=== PATIENT | female | born 1950 | race Caucasian/White ===

== ENCOUNTER 2017-04-08 07:19 | Inpatient (IN) ==
[2017-04-08] MEDS ORDERED: NS 1,000 ML IV ONE (07:41)
[2017-04-08] MEDS ORDERED: ONDANSETRON 4 MG/2 ML INJECTION IVP ONE (07:41)
[2017-04-08] MEDS ORDERED: HYDROMORPHONE 2 MG/ML INJECTION IVP ONE ×3 (07:41→11:41)
--- NOTE | 2017-04-08 07:47 | Emergency Department Report ---
General Adult HPI - General Chief complaint: Abdominal Pain Stated complaint: severe abd pain Time Seen by Provider: 04/08/17 07:22 Source: patient Mode of arrival: wheelchair Limitations: no limitations - History of Present Illness HPI narrative: 66-year-old female presents to the emergency department with a chief complaint of generalized lower abdominal discomfort. Patient noted onset of symptoms at the end of last week and had a CT scan on Saturday which showed a hiatal hernia and constipation. She describes the pain as severe. No radiation. she does not note any exacerbating or remitting factors. She also notes 3-4 episodes of nonbloody emesis. Symptoms have been intermittent in nature. No other complaints or associated symptoms. She was at home when her symptoms began. - Related Data Home Medications Medication Instructions Recorded Confirmed BuPROPion SR [Wellbutrin Sr] 150 mg PO DAILY 04/08/17 04/08/17 Citalopram [Celexa] 40 mg PO DAILY 04/08/17 04/08/17 Rizatriptan Benzoate [Maxalt] 10 mg PO PRN PRN 04/08/17 04/08/17 Allergies Allergy/AdvReac Type Severity Reaction Status Date / Time Penicillins Allergy Severe ANAPHYLACTIC Verified 04/08/17 07:30 SHOCK Review of Systems Constitutional: Denies: fever, chills Eyes: Denies: eye pain, vision change ENT: Denies: ear pain, throat pain Cardiovascular: Denies: chest pain, palpitations Respiratory: Denies: cough, dyspnea Gastrointestinal: Reports: abdominal pain, nausea, vomiting, constipation. Denies: diarrhea Genitourinary: Denies: urgency, dysuria Musculoskeletal: Denies: back pain, arthralgia Integumentary: Denies: erythema, rash Neurological: Denies: headache, numbness Psychiatric: Denies: anxiety, depression Endocrine: Denies: fatigue, heat or cold intolerance Hematological/Lymphatic: Denies: easy bleeding, easy bruising Allergic/Immunologic: Denies: facial swelling, urticaria PFSH Patient Stated Medical History Cerebrovascular Accident No Migraine Yes: medication Paralysis No Seizures No Syncope No Angina No Cardiac Arrhythmia No Congestive Heart Failure No Coronary Artery Disease No Heart Murmur No Hypertension No Hypotension No Myocardial Infarction No Rheumatic Fever No Valvular Heart Disease No Other Cardiology No Asthma No Bronchitis No Chronic Obstructive Pulmonary No Disease (COPD) Pneumonia No Pulmonary Edema No Pulmonary Embolism No Sleep Apnea No Tuberculosis No Other Respiratory No Diabetes Mellitus Type 1 No Diabetes Mellitus Type 2 No Cirrhosis No Gastroesophageal Reflux No Disease Gastrointestinal Bleeding No Hepatitis No Hiatal Hernia No Obstructive Bowel No Ulcer No Other GI Yes: Acute Abdomen Hx Urinary Tract Infection Yes Osteoarthritis No Other Musculoskeletal No Anesthesia Reactions No Blood Transfusions No Chemotherapy No Malignant Hyperthermia No Other No Depression No Now No Clinic Medical History (Last Updated 01/22/17 @ 17:05 by THIAGO Faulkner) Depression (Acute Medical) Surgical History: *PARTIAL HYSTERECTOMY. *LEFT KNEE SCOPE Family History: Reviewed and Noncontributory. - Social History Smoking status: Never smoker Substance use type: does not use Alcohol intake frequency: does not drink Physical Exam - Limitations Limitations: no limitations - General General appearance: alert, in no apparent distress - Normal Exams: Head:: Normocephalic without trauma Eyes:: Pupils are PERRLA w/ EOMI, No scleral icterus, irritation, or foreign bodies noted ENMT:: No facial trauma, nasal exudates, pharyngeal erythema, or exudates are noted Dental: No fractured, loose, or missing teeth noted Neck:: Full range of motion, without adenopathy, JVD, bruits or thyromegaly Chest/Respirations:: Clear all [place], with good airflow, and symmetry bilaterally Cardiovascular:: Regular rate and rhythm, without murmur or gallop, Pulses 2+ all extremities, capillary refill, <2 seconds all extremities Abdomen:: Bowel sounds positive, non-distended, no hepatosplenomegaly, masses or bruits noted (soft. generalized lower abdominal tenderness to palpation without rebound or guarding. ) Musculoskeletal:: No tenderness, or deformity noted, good range of motion, all extremities Integumentary:: No rashes, hives, or bruising noted, hair and nails, without abnormality Neurological:: Patient is alert, and oriented, cranial nerves, motor/sensory/ cerebellar, exams w/o gross deficits, to observation Psychiatric:: Patient exhibits, appropriate attention, emotion and affect Course Vital Signs Temperature 98.4 F 04/08/17 07:25 Pulse Rate 71 04/08/17 07:25 Respiratory Rate 20 04/08/17 07:25 Blood Pressure 116/55 04/08/17 07:25 Pulse Oximetry 95 04/08/17 07:25 Temperature 98.0 F 04/08/17 10:19 Pulse Rate 75 04/08/17 10:31 Respiratory Rate 22 04/08/17 10:19 Blood Pressure 118/55 04/08/17 10:19 Pulse Oximetry 92 04/08/17 10:19 Medical Decision Making - MDM Narrative Medical decision making narrative: Labs/imaging were discussed in detail with the patient and family and questions are answered. Patient is given gentle IV hydration. Patient is given parental narcotic and antiemetic medications intravenously with improvement of symptoms. Patient is given Flagyl 500 mg IV [address] in the emergency department. Dr. Rivera has requested to select his own fluoroquinolone to be administered intravenously. Patient is discussed with Dr. Rivera of general surgery and admitted to his service. Patient will be taken to the operating room by Dr. Rivera. Patient and family are in agreement with the current plan of management. Patient is admitted to the hospital in improved condition. No further orders from the accepting physician who is in agreement with the current plan of management. - Differential Diagnosis SBO, metabolic disorder, UTI, colitis, perforation - Lab Data Result diagrams: 04/08/17 07:43 04/08/17 07:43 Lab Results 04/08/17 04/08/17 04/08/17 Range/Units 07:43 07:43 09:47 WBC 10.6 (4.5-11.0) T/MM3 RBC 4.74 (4.00-5.20) M/MM3 Hgb 14.1 (12-16) GM/DL Hct 43.5 (36-46) % MCV 91.8 (80-100) UM3 MCH 29.7 (26-34) UUG MCHC 32.4 (31-37) GM/DL RDW Std Deviation 45.4 (36.9-50.2) FL Plt Count 385 (130-400) T/MM3 MPV 9.3 L (9.4-12.4) UM3 Immature Gran % (Auto) 0.1 (0.0-0.5) % Neut % (Auto) 77.6 H (33-66) % Lymph % (Auto) 16.3 L (23-45) % [place] % (Auto) 4.4 (0-9.0) % Eos % (Auto) 1.4 (0-4) % Baso % (Auto) 0.2 (0-2) % Neut # (Auto) 8.3 H (1.8-7.7) T/MM3 Lymph # (Auto) 1.7 (1-4.8) T/MM3 [place] # (Auto) 0.5 (0-0.8) T/MM3 Eos # (Auto) 0.2 (0-0.5) T/MM3 Baso # (Auto) 0.0 (0-0.2) T/MM3 Abs Immat Gran (auto) 0.01 (0.00-0.03) T/MM3 Turbidity < 20 (0-20) Sodium 142 (134-144) MEQ/L Potassium 3.9 (3.6-5) MEQ/L Chloride 107 (98-107) MEQ/L Carbon Dioxide 27 (22-30) MEQ/L Anion Gap 8 (5-15) MEQ/L BUN 21.0 H (7-17) MG/DL Creatinine 0.7 (0.7-1.2) MG/DL GFR Calculation 83 BUN/Creatinine Ratio 30 H (6-26) RATIO Glucose 136 H (65-110) MG/DL Calculated Osmolality 278 (261-280) MOSM/KG Calcium 9.2 (8.4-10.2) MG/DL Total Bilirubin 0.70 (0.20-1.30) MG/DL Icterus Index < 2 (0-7) AST 20 (14-36) U/L ALT 35 (9-52) U/L Alkaline Phosphatase 88 (38-126) U/L Total Protein 7.0 (6.3-8.2) G/DL Albumin 4.1 (3.5-5.0) G/DL Globulin 2.9 (2.4-3.6) G/DL Albumin/Globulin Ratio 1.4 (1.1-2.2) RATIO Lipase 151 (23-300) U/L Specimen Hemolysis < 15 (0-25) Ur Collection Type Urine, clean catch Urine Color Yellow (YELLOW) Urine Clarity Clear Urine pH 5.5 (5.0-8.0) Ur Specific [place] 1.015 (1.015-1.025) Urine Protein Negative (NEGATIVE) Urine Glucose (UA) Negative (NEGATIVE) Urine Ketones Negative (NEGATIVE) Urine Occult Blood 2+ A (NEGATIVE) Urine Nitrate Negative (NEGATIVE) Urine Bilirubin Negative (NEGATIVE) Urine Urobilinogen 0.2 (NORMAL) EU/DL Ur Leukocyte Esterase Negative (NEGATIVE) Urine RBC 5-10 H (0-3) /HPF Urine WBC 0-1 (0-5) /HPF Ur Squamous Epith Cells 0-5 Urine Bacteria None seen (NEGATIVE) Ur Culture Indicated? Cult not indicated - Radiology Data DT abdomen/pelvis: Moderate amount of pneumoperitoneum without exact source. Otherwise no acute processes. - EKG Data EKG #1 EKG results narrative: Sinus rhythm. 71 bpm. No STEMI. Critical Care Time Critical Care Time: Yes Total Critical Care Time: 47 Attestation: 47 minutes of critical care time was assessed to the patient due to perforated abdominal viscus. Patient required complex medical decision-making, repeated assessment at the bedside, and had potential for decompensation. Critical care time was spent documenting the medical record, treating the patient, making telephone calls on the patient's behalf, and documenting the medical record. Patient was admitted to the ICU in improved condition. Disposition Clinical Impression: abdominal pain, Perforated viscus Disposition: 02 To [facility] Condition: Improved Time of Disposition: 09:30 (Ad[address]. Dr. Rivera.) - Seen By: physician
[2017-04-08] MEDS ORDERED: NS 100 ML ONE (08:29)
[2017-04-08] MEDS ORDERED: IOHEXOL 300mg/ml 75ml INJECTION ONE (08:29)
[2017-04-08] MEDS ORDERED: SALINE FLUSH 10ml SYRINGE ONE ×2 (08:29→11:41)
--- NOTE | 2017-04-08 09:30 | CT Scan Report ---
Indication: Pain, Vomiting PROCEDURE: CT abdomen pelvis w con: Encounter: Initial Comparison: 04/05/2017 Findings: There is a small amount of dependent atelectasis versus subpleural fibrosis. No pleural effusion. Heart size is normal. There is a small hiatal hernia. There are numerous scattered foci of free air in the anterior abdomen upper and lower. The stomach is mildly distended with food and there is mild gastric wall thickening without definite discrete ulceration. There are postsurgical changes prior Enma-en-Y surgery. The gallbladder is thin-walled and nondistended without stones. The liver and spleen enhance homogeneously. Adrenal glands are normal. Kidneys enhance homogeneously and symmetrically. The pancreas is homogeneous in density and uniform in contour. The abdominal aorta is nonaneurysmal. No retroperitoneal or mesenteric adenopathy. Pelvis: There is moderate colonic stool all the way to the rectum without clear evidence for obstruction or free air. The urinary bladder is mildly distended. A normal appendix is identified. Impression: Moderate diffuse pneumoperitoneum with unclear source. This could represent gastric or colonic perforation. Moderate urinary bladder distention. No definite adenopathy or mass lesion. .
[2017-04-08] MEDS ORDERED: MetroNIDAZOLE PB 500 MG/100 ML BAG IV SCH ×2 (09:45→15:43)
[2017-04-08] MEDS ORDERED: LR 1,000 ML IV SCH ×2 (10:15→10:43)
--- NOTE | 2017-04-08 10:30 | General Surg History&Physical ---
- History of Present Illness Chief complaint: sever abd pain HPI: Per Dr. Rivera [facility] Patient Stated Medical History Clinic Medical History (Last Updated 01/22/17 @ 17:05 by THIAGO Faulkner) Depression (Acute Medical) Duodenal ulcers Esophageal stricture Surgical History: VAGINAL HYSTERECTOMY 1984. LEFT KNEE SCOPE. EGD WITH DILATATION 2002 AT [place]. ROU-EN-Y FOR ADHESIVE BAND/STRICURE FROM [facility] AT [place] 2003. Family History: Sister - Breast cancer. Sister - Breast cancer. 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[place]) Current residence: Apartment/Private Home Medications Home Medications Medication Instructions Recorded Confirmed Type BuPROPion SR [Wellbutrin Sr] 150 mg PO DAILY 04/08/17 04/08/17 History Citalopram [Celexa] 40 mg PO DAILY 04/08/17 04/08/17 History Allergies Allergy/AdvReac Type Severity Reaction Status Date / Time Penicillins Allergy Severe ANAPHYLACTIC Verified 04/08/17 07:30 SHOCK Review of Systems 10-point ROS: negative except for HPI and the following: - Psychiatric Psychiatric: Present: depression - Vital Signs Last Vital Signs Temp 98.0 F 04/08/17 10:19 Pulse 71 04/08/17 10:19 Resp 22 04/08/17 10:19 BP 118/55 04/08/17 10:19 Pulse Ox 92 04/08/17 10:19 - Laboratory Result Diagrams: 04/08/17 07:43 04/08/17 07:43 General Surgery Results - Results Labs: 04/08/17 07:43 04/08/17 07:43 Hospital Course Summary Disclaimer: The visit summary below is not to be considered part of the above Progress Note.
[2017-04-08] MEDS ORDERED: CLINDAMYCIN PB 600 MG/50 ML BAG IV SCH (10:43)
[2017-04-08] MEDS ORDERED: LEVOFLOXACIN PB 500 MG/100 ML BAG IV SCH (10:43)
[2017-04-08] MEDS ORDERED: MORPHINE SULFATE 4mg INJECTION IVP PRN ×2 (10:43→15:43)
[2017-04-08] MEDS: NS 1,000 ML IV SCH ×2 (10:53→14:40)
--- NOTE | 2017-04-08 10:59 | Anesthesia Preoperative Report ---
Anesthesia Preoperative Record - Date and Time Date: 04/08/17 Preoperative Diagnosis: severe abd pain Proposed Procedure: Exp Lap NPO Since Date: 04/07/17 NPO Since Time: 17:00 Allergies/Adverse Reactions: Allergies Allergy/AdvReac Type Severity Reaction Status Date / Time Penicillins Allergy Severe ANAPHYLACTIC Verified 04/08/17 07:30 SHOCK - Vital Signs Vital Signs: Temperature 98.0 F 04/08/17 10:19 Pulse Rate 75 04/08/17 10:31 Respiratory Rate 22 04/08/17 10:19 Blood Pressure 118/55 04/08/17 10:19 Pulse Oximetry 92 04/08/17 10:19 Height and Weight: Height 5 ft 5 in Weight 57.6 kg - Medications Inpatient Medications: Current Medications Metronidazole/Sodium Chloride (Flagyl Iv Premix) 500 mg in 100 mls @ 100 mls/ hr IV O LAURI Last Admin: 04/08/17 10:25 Dose: 100 mls/hr Clindamycin Phosphate (Cleocin Premix) 600 mg in 50 mls @ 100 mls/hr IV Q8H LAURI Levofloxacin/Dextrose (Levaquin Premix) 500 mg in 100 mls @ 100 mls/hr IV Q24H LAURI Lactated Ringer's (Lactated Ringers) 1,000 mls @ 100 mls/hr IV .Q10H LAURI Sodium Chloride (Normal Saline) 1,000 mls @ 50 mls/hr IV .Q20H LAURI Last Admin: 04/08/17 10:53 Dose: 50 mls/hr Morphine Sulfate (Morphine Sulfate Inj) 2 - 4 mg IVP Q2H PRN PRN Reason: Pain Sodium Chloride (Iv Flush) 10 - 80 ml IVF PRN PRN PRN Reason: Flushing Home Medications: Home Medications Medication Instructions Recorded Confirmed Type BuPROPion SR [Wellbutrin Sr] 150 mg PO DAILY 04/08/17 04/08/17 History Citalopram [Celexa] 40 mg PO DAILY 04/08/17 04/08/17 History Is Patient on Beta Antoinette?: No - Medical History Respiratory: DENIES: Asthma, Bronchitis, Chronic Obstructive Pulmonary Disease (COPD), Dyspnea, Orthopnea, Pulmonary Embolism, Pneumonia, Upper Respiratory Infection, Pulmonary Edema, Sleep Apnea, Tuberculosis, Other Cardiovascular: DENIES: Abnormal EKG, Angina, Arrhythmia, Congestive Heart Failure, Coronary Artery Disease, Heart Murmur, Hypertension, Hypotension, High Cholesterol, Myocardial Infarction, Rheumatic Fever, Valvular Heart Disease, Other Gastrointestional: Reports: Other (Acute Abdomen) DENIES: Obstructive Bowel, Hepatitis, Cirrhosis, Nausea or Vomiting Present, Gastroesophageal Reflux Disease, Gastrointestinal Bleeding, Hiatal Hernia, Ulcer , Morbid Obesity Neuro/Musculoskeletal: Denies: HX.MS.OSAR, Back Problems, Cerebrovascular Accident, Depression, Headaches, Loss of Consciousness, Muscle Weakness, Neuromuscular Disorder, Paralysis, Paresthesia, Syncope, Seizures, Other Renal/Endocrine: DENIES: Diabetes Mellitus Type 1, Diabetes Mellitus Type 2, Renal Failure, Dialysis, Thyroid Disease, Weight Loss, Weight Gain, Other Other History: DENIES: Anesthesia Reactions, Now, Blood Transfusions, Chemotherapy , Cancer, Hemophilia, Malignant Hyperthermia, Sickle Cell Disease, Other - Surgical History GI Surgery/Treatments: Reports: Other (removed scarring around duodenum) Musculoskeletal Surgery/Tx: Reports: Knee Arthroscopy (left) Reproductive Surgery/Treatment: Reports: Hysterectomy Anesthesia Reactions: None Hx Family Anesthesia Reaction: No History of Motion Sickness: No - Social History Smoking Status: Never smoker Hx Chewing Tobacco Use: No Second Hand Exposure: No Substance Use Type: does not use Alcohol Intake Frequency: does not drink - Pertinent Findings Laboratory: CBC and BMP 04/08/17 07:43 04/08/17 07:43 BMP 04/08/17 07:43 Sodium 142 Potassium 3.9 Chloride 107 Carbon Dioxide 27 BUN 21.0 H Creatinine 0.7 Glucose 136 H Calcium 9.2 Liver Function 04/08/17 Range/Units 07:43 Total Bilirubin 0.70 (0.20-1.30) MG/DL AST 20 (14-36) U/L ALT 35 (9-52) U/L Alkaline Phosphatase 88 (38-126) U/L Albumin 4.1 (3.5-5.0) G/DL Urine 04/08/17 Range/Units 09:47 Urine Color Yellow (YELLOW) Urine Clarity Clear Urine pH 5.5 (5.0-8.0) Ur Specific [place] 1.015 (1.015-1.025) Urine Protein Negative (NEGATIVE) Urine Glucose (UA) Negative (NEGATIVE) EKG: Sinus Rhythm - Physical Exam Respiratory Exam: Present: lungs clear, bilateral breath sounds equal Cardiovascular Exam: Present: regular rate and rhythm, no murmur - Airway Assessment Mallampati Score: I TMD: 3 Fingerbreadths Overall Assessment: no airway concerns - ASA ASA Score: 2, E - Plan Anesthesia: General Inhalation Gases - Discussion Discussion: Discussed risks/options/alternatives of anesthesia and questions answered. Patient consents. Nursing pain assessment noted. Present for Discussion: family member Attestation Statement: Prior to the delivery of any anesthetic medication, I examined the patient, developed the plan, obtained the patient's consent and discussed the risk and benefits of the procedure with the patient/guardian. - Additional Information Seen by Anesthesia: Yes
[2017-04-08] MEDS ORDERED: PROPOFOL 20 ML ONE (11:40)
[2017-04-08] MEDS ORDERED: ROCURONIUM 50 MG/5 ML INJECTION IVP ONE ×2 (11:40→13:50)
[2017-04-08] MEDS ORDERED: SUFentanil 50mcg/ml INJECTION ONE (11:41)
--- NOTE | 2017-04-08 12:58 | History and Physical ---
FINDINGS Mrs. iBshop is a 66-year-old female whom I was asked to see this morning through the emergency room as a result of her history and physical findings of severe abdominal pain in conjunction with an abnormal CT scan revealing evidence of pneumoperitoneum. Mrs. Bishop this morning was in a considerable amount of discomfort during the interview process and therefore a good portion of the history was obtained from her daughter who was present. Apparently last week the patient was complaining of a component of loose stools and vomiting. The patient states that she did see her primary care physician and was informed that she had a "bladder infection". The patient was placed on antibiotics but this did not result in much improvement. The patient's daughter states that they represented to her primary care physician's office on Saturday and had underwent a CT scan of her abdomen and pelvis. Apparently the CT scan at that time did not reveal any marked abnormalities and the patient was continued to be managed on an outpatient basis over the course of the weekend. Unfortunately over the weekend the patient continued to have ongoing abdominal pain and discomfort. This pain became more severe this morning. As a result of this increasing severe abdominal pain, the patient presented to our emergency room facility where a repeat CT scan was obtained. Unfortunately on CT scan there was evidence for pneumoperitoneum. I was subsequent notified for further evaluation of the patient. The patient was subsequently transferred over to the preop area as a result of the above circumstances. Upon my entering into the preop exam room, the patient was holding her abdomen and was complaining of severe abdominal pain. PAST MEDICAL HISTORY Performed by my nurse practitionerNeri. PAST SURGICAL HISTORY Performed by my nurse practitionerNeri. MEDICATIONS Performed by my nurse practitionerNeri. ALLERGIES Performed by my nurse practitionerNeri. SOCIAL HISTORY Performed by my nurse practitionerNeri. FAMILY HISTORY Performed by my nurse practitionerNeri. REVIEW OF SYSTEMS Performed by my nurse practitionerNeri. I have also obtained this information and reviewed the data collected. PHYSICAL EXAMINATION GENERAL: Mrs. Bishop is a 66-year-old female who does appear to be in acute distress. VITALS: Temperature 98.0, pulse 75, respirations 22, blood pressure 118/55, SaO2 92% on 3 liters per nasal cannula. HEENT: Normocephalic. Pupils are equally round and react to light and accommodation. NECK: Supple without lymphadenopathy. CHEST: Clear to auscultation bilaterally. HEART: Regular rate and rhythm. Normal S1, S2, without gallops, murmurs or clicks. ABDOMEN: Palpation of the abdomen reveals diffuse peritonitis throughout. Any palpation of the anterior abdominal wall elicits severe pain to the patient. She does have a component of both voluntary and involuntary guarding. I do not appreciate any evidence for hepatomegaly or other abnormal masses. EXTREMITIES: Without clubbing, cyanosis, or edema. NEURO: Cranial nerves II-XII grossly intact. Patient without focal, motor, or sensory deficits. LABORATORY/RADIOGRAPHIC EVALUATION The patient had a CBC and her white count was 10.6. Hemoglobin was normal at 14.1. CMP was obtained and found to be essentially within normal limits. Lipase was normal at 151. UA was obtained and she was found to have a few RBCs , otherwise UA was negative. I have reviewed her CT scan of her abdomen and pelvis personally as well as the dictated report. The patient does have a considerable amount of stool throughout the entire colon. The urinary bladder was distended in nature. One can see free air throughout the anterior abdominal wall. Additionally upon reviewing the CT scan there does appear to be more "droplets of air" along the left lateral abdominal wall. No distinct site of mesenteric fat stranding is present, however, to identify the potential source of her perforation. ASSESSMENT 66-year-old female with acute surgical abdomen/pneumoperitoneum. PLAN Exploratory laparotomy. I informed the patient and her daughter who was present that the patient did indeed have a life-threatening condition and I would recommend proceeding with an emergent surgical intervention. It was my recommendation that we initiate broad-spectrum antibiotics, provide fluid bolus , and then proceed with exploratory laparotomy. Potential risks of the procedure which include, but not exclusive of, bleeding and/or infection was discussed with the patient's daughter. The patient and family understood and wished to proceed as stated above. GARCIA
[2017-04-08] MEDS ORDERED: LIDOCAINE VISCOUS 2% ORAL LIQUID 15ml ONE (13:00)
[2017-04-08] MEDS ORDERED: EPHEDRINE 50mg/ml INJECTION ONE (13:34)
[2017-04-08] MEDS ORDERED: SUGAMMADEX 200mg/2ml INJECTION IVP ONE (15:06)
--- NOTE | 2017-04-08 15:34 | General Surgery Procedure Note ---
Date of Procedure: 04/08/17 Surgeon: Nicole Power Plant Supervisor: Neri Woodward APRN Postoperative Diagnosis: Subsequent stercoral perforation Procedure: Exploratory laparotomy with sigmoid resection, takedown splenic flexure, and creation of end colostomy Estimated Blood Loss: See Anesthesia Record.
[2017-04-08] MEDS ORDERED: HYDROMORPHONE PCA 30mg/30ml VIAL IV PRN (15:43)
[2017-04-08] MEDS: ONDANSETRON 4 MG/2 ML INJECTION IVP PRN (15:45)
[2017-04-08] MEDS ORDERED: DiphenhydrAMINE 50 MG/ML INJECTION IVP ONE (16:08)
[2017-04-08] MEDS: D5-1/2NS with KCL 20mEq 1,000 ML IV SCH (18:09)
[2017-04-08] MEDS ORDERED: ALBUTEROL 2.5mg/3ml (0.083%) NEB AEROSOL PRN (18:11)
[2017-04-08] MEDS: MetroNIDAZOLE PB 500 MG/100 ML BAG IV SCH (18:13)
[2017-04-08] MEDS: KETOROLAC 15 MG/ML INJECTION IVP PRN (19:00)
--- NOTE | 2017-04-08 19:11 | Anesthesia Postoperative Note ---
- Date and Time Date: 04/08/17 Time: 19:10 - Status Patient Participated in Evaluation: Patient Participated in Person Vital Signs: Temperature 91.1 F L 04/08/17 17:56 Pulse Rate 74 04/08/17 18:00 Respiratory Rate 18 04/08/17 18:00 Blood Pressure 168/81 H 04/08/17 18:00 Pulse Oximetry 96 04/08/17 18:00 Respiratory Function: Airway Patent Cardiovascular Function: Regular Pulse EKG: Sinus Rhythm Mental Status: Alert and Oriented Pain Intensity: 4 Hydration: IV Infusing, Nausea, Vomiting Complications During Recover: None Apparent - Follow-Up Instructions Instructions: Per Surgeon
[2017-04-08] MEDS: PROCHLORPERAZINE 10 MG/2 ML INJECTION IVP PRN (19:15)
[2017-04-08] MEDS: CLINDAMYCIN PB 600 MG/50 ML BAG IV SCH (21:05)
[2017-04-09] MEDS: ONDANSETRON 4 MG/2 ML INJECTION IVP PRN ×3 (00:28→14:19)
[2017-04-09] MEDS: MetroNIDAZOLE PB 500 MG/100 ML BAG IV SCH ×3 (01:50→17:22)
[2017-04-09] MEDS: PROCHLORPERAZINE 10 MG/2 ML INJECTION IVP PRN (04:25)
[2017-04-09] MEDS: CLINDAMYCIN PB 600 MG/50 ML BAG IV SCH ×3 (04:34→20:53)
[2017-04-09] MEDS: D5-1/2NS with KCL 20mEq 1,000 ML IV SCH (05:26)
[2017-04-09] MEDS ORDERED: GENTAMICIN - PHARMACY CONSULT MC ONE (07:25)
--- NOTE | 2017-04-09 07:46 | Pharmacy Consult-Antibiotics ---
Pharmacy Consult-Gentamicin - Laboratory Information Gentamicin WBC 7.1 T/MM3 (4.5-11.0) 04/09/17 04:10 BUN 15.0 MG/DL (7-17) 04/09/17 04:10 Creatinine 0.6 MG/DL (0.7-1.2) L 04/09/17 04:10 - Consult Information Gentamicin therapy started on Ms Bishop, who is 66 years old and has a perforated viscus. Her antiobiotics currently are clindamycin and metronidazole (the gentamicin will replace the levofloxacin). She has good renal function. Will begin gentamicin 120mg IVPB q12h. Will continue to monitor and adjust doses accordingly. Thank you.
[2017-04-09] MEDS: SALINE FLUSH 10ml SYRINGE IVF PRN (07:48)
[2017-04-09] MEDS: KETOROLAC 15 MG/ML INJECTION IVP PRN ×3 (08:21→20:52)
[2017-04-09] MEDS: GENTAMICIN 120 MG in NS 100 ML IV SCH ×2 (08:21→20:00)
[2017-04-09] MEDS: POTASSIUM CHLORIDE INJ 10 MEQ in NS 1,000 ML IV SCH ×2 (08:22→17:21)
--- NOTE | 2017-04-09 09:05 | Operative Note ---
DATE OF SERVICE 04/08/2017 SURGEON Jayson Rivera MD MEDICAL ASSISTANT Neri Woodward APRN PREOPERATIVE DIAGNOSIS Acute surgical abdomen, abnormal CT scan revealing pneumoperitoneum. POSTOPERATIVE DIAGNOSIS Acute surgical abdomen, abnormal CT scan revealing pneumoperitoneum secondary to sigmoid stercoral perforation. PROCEDURE Exploratory laparotomy, sigmoid resection, creation of Maria Elena's pouch and end colostomy, mobilization of splenic flexure. ANESTHESIA General endotracheal. EBL AND FLUIDS Please see chart. BRIEF HISTORY/INDICATIONS Mrs. Bishop is a 66-year-old female whom I was asked to see earlier today through the emergency room as a result of her history and physical findings of severe abdominal pain in conjunction with an abnormal CT scan revealing evidence for pneumoperitoneum. Upon abdominal examination the patient was found to have peritonitis. As a result of the above indications, it was recommended to the patient that she undergo surgical intervention. For completeness, please refer to notes in the patient's chart. FINDINGS Upon laparotomy one could see her prior Enma-en-Y gastrojejunostomy. The liver edge was smooth without nodularities. Gallbladder was distended but without palpable stones. Small bowel was run from the ligament of Treitz to the terminal ileum. No visible or palpable abnormalities were noted. Palpation of the colon revealed a significant amount of stool burden throughout the entire colon. Within the sigmoid colon the patient was found to have a perforation as the result of marked severe obstipation/constipation. One could see a perforation of the midsigmoid colon. There was a fair amount of purulence and purulent material within the perisigmoid colon at this location. There was a fair amount of johnnie pus within the pouch of Pablo. Anaerobic and aerobic cultures were obtained from the pouch of Pablo. A standard sigmoid resection with creation of an end colostomy and Maria Elena's pouch and mobilization of the splenic flexure was performed without incident. PROCEDURE After informed consent was obtained, the patient was brought to the operating suite, placed on the table in supine fashion. The abdomen was then prepped and draped in sterile fashion. Formal time-out was then completed. A standard midline incision was then made from within the epigastric region down to the suprapubic region. Underlying subcutaneous tissues, fascia and peritoneum was then opened to the extent of the incision. Abdominal cavity was explored with findings as noted above. Once the perforation of the sigmoid colon had been identified, the white line of Toldt was incised and the sigmoid colon and descending colon was reflected medially. Sigmoid colon was found to be fairly redundant in nature. A point involving the mid descending colon about 10-15 cm proximal to the perforation was identified. A small opening was created within the mesentery at this location adjacent to the colon. A JEISON 75 stapler was then placed across the colon and fired at this location. Next, the mesentery was then sequentially divided between right angle clamps involving the sigmoid colon down to the rectosigmoid junction. Dissection was carried out fairly close to the colon so as to avoid injury to the ureter. Once the mesentery had been divided down to the rectosigmoid junction a contour stapler was placed across the rectum and fired. The sigmoid colon was then passed off table as a surgical specimen. Two sffart-uj-geril sutures of 2-0 Prolene were then placed along the edges of the Maria Elena's pouch to facilitate identification of the Maria Elena's pouch if the patient was to undergo takedown of her colostomy in the future. Secondary to the marked contamination within the peritoneal cavity and the significant amount of stool burden within the colon, I elected not to perform a primary anastomosis. To provide better mobilization of the remaining descending colon, I elected to go ahead and mobilize the splenic flexure. White line of Toldt was continued to be incised up to the splenic flexure. Gastrocolic ligament and omentum between the stomach and colon was then sequentially divided between right angle clamps and ligated with 0 Vicryl ties. Splenorenal ligament was then divided under direct visualization. This resulted in complete mobilization of the splenic flexure. Next, I elected to go ahead and attempt to express the considerable amount of stool burden within her remaining colon out through the proximal staple line. Colon was able to be brought forth up through the midline incision and the end of the staple line was transected with curved Barrow scissors. A fair amount of time was spent advancing the stool burden from the transverse colon and remaining descending colon out through the transected end of the colon. The colon was irrigated during this process utilizing Asepto with Betadine solution. Perhaps 3-4 feet of stool was able to be expressed in this fashion. Next JEISON 75 stapler was then placed once again across the open end of the remaining descending colon and fired. The end of the colon was then irrigated copiously with Betadine solution. Colon was returned back into the abdominal cavity. Attention was then directed towards creation of the colostomy. [facility] clamps were placed upon the fascia to the left of the incision and retracted medially. A point somewhat lateral and caudad to the umbilicus was then obtained. An [facility] clamp was placed at the proposed colostomy site and retracted anteriorly. A 15- blade was then utilized and a small circular incision was then made between the [facility] clamp. Dissection was carried down to the underlying anterior rectus sheath. A cruciate incision was then made overlying the anterior rectus sheath. One could then see the linear fibers of the rectus muscle. A hemostat was introduced through the midportion of the rectus muscle and gently spread and advanced through the posterior rectus sheath. This opening was then enlarged so that two to three fingers could be placed within the newly created colostomy site. A Prosper clamp was then placed through the newly created colostomy site and used to grasp the end of the staple line upon the remaining descending colon. This portion of the colon was then brought forth out through the incision. New gowns, gloves and instruments were then obtained. Attention was then directed towards the fascial closure. Instrument, sponge and needle counts were performed and found to be correct. Fascia was then closed in a running fashion with #1 PDS. Skin was then closed with ismael. Attention was then focused towards creation of the colostomy. The very tip of the colon that had been brought forth out through the abdominal wall did appear somewhat dusky. I therefore transected an additional 3-4 cm of the colon across viable appearing colon. This was done utilizing curved Barrow scissors. The transected end of the colon did bleed briskly indicative of adequate blood supply. Attention was then directed towards creation of the colostomy. Four quadrant sutures were placed in the following fashion: first a full purchase of the transected end of the colon was obtained followed by a seromuscular purchase of the colon about 3-4 cm proximal to the transected end of the colon followed by subcuticular purchase of the adjacent skin. Each quadrant suture was then tied securely resulting in the creation of a nicely everted colostomy. Each quadrant suture was then bisected by placing an additional single interrupted suture of 3-0 Vicryl. The colostomy appliance was then applied. Sterile dressing was then applied. The patient will be sent back to the ICU once she is deemed in stable condition. Additionally, it should be noted that Neri Woodward APRN, was present throughout the entire case and played a pivotal role in providing assistance and exposure during the course of the procedure. GARCIA
[2017-04-09] MEDS: ENOXAPARIN 40 MG/0.4 ML INJECTION SQ SCH (09:08)
[2017-04-09] MEDS: PANTOPRAZOLE 40 MG INJECTION IVP SCH (09:08)
[2017-04-09] MEDS: CITALOPRAM 40 MG TABLET PO SCH (09:09)
[2017-04-09] MEDS: BuPROPion SR 150mg (12HR) TABLET PO SCH (09:09)
[2017-04-09] MEDS: SENNA + DOCUSATE TABLET PO SCH (09:09)
[2017-04-09] MEDS ORDERED: [UNRECOGNIZED DRUG - OTHER] PO PRN (11:40)
--- NOTE | 2017-04-09 16:47 | Progress Note ---
DATE 04/09/2017 FINDINGS Ms. Bishop this morning appeared significantly better in comparison to last evening. She states that her nausea and pain are markedly improved. VITALS: Afebrile. Normotensive. Please refer to EMR. CHEST: Clear to auscultation bilaterally. HEART: Regular rate and rhythm. Normal S1 and S2 without gallops, murmurs or clicks. ABDOMEN: Abdomen is soft. Incisional tenderness is present. Colostomy is present within left lower quadrant and pink and somewhat "edematous" in nature. LABORATORY/RADIOGRAPH EVALUATION The patient's CBC today revealed a white count of 7.1. Hemoglobin is overall stable at 12.1. Did have left shift with 27% bands. BMP obtained and found to be essentially within normal limits. ASSESSMENT 66-year-old female status post exploratory laparotomy secondary to stercoral perforation of sigmoid colon. Status post sigmoid resection, Maria Elena's pouch and creation of end colostomy. Patient doing well this morning. PLAN Will continue with current the care at this time. Will go ahead and begin the patient on some clear liquids. Will continue with ongoing broad-spectrum antibiotics. MTDD
[2017-04-10] MEDS: ONDANSETRON 4 MG/2 ML INJECTION IVP PRN ×3 (01:52→23:03)
[2017-04-10] MEDS: SALINE FLUSH 10ml SYRINGE IVF PRN ×3 (01:52→23:03)
[2017-04-10] MEDS: MetroNIDAZOLE PB 500 MG/100 ML BAG IV SCH ×3 (02:01→20:39)
[2017-04-10] MEDS: POTASSIUM CHLORIDE INJ 10 MEQ in NS 1,000 ML IV SCH ×3 (02:01→13:06)
[2017-04-10] MEDS: KETOROLAC 15 MG/ML INJECTION IVP PRN ×3 (04:18→23:01)
[2017-04-10] MEDS: CLINDAMYCIN PB 600 MG/50 ML BAG IV SCH ×3 (05:35→23:47)
[2017-04-10] MEDS: GENTAMICIN 120 MG in NS 100 ML IV SCH ×2 (09:20→21:57)
[2017-04-10] MEDS: ENOXAPARIN 40 MG/0.4 ML INJECTION SQ SCH (09:22)
[2017-04-10] MEDS: CITALOPRAM 40 MG TABLET PO SCH (09:22)
[2017-04-10] MEDS: BuPROPion SR 150mg (12HR) TABLET PO SCH (09:22)
[2017-04-10] MEDS: SENNA + DOCUSATE TABLET PO SCH (09:22)
[2017-04-10] MEDS: PANTOPRAZOLE 40 MG INJECTION IVP SCH (09:25)
[2017-04-10] MEDS ORDERED: NS 1,000 ML IV SCH (13:30)
[2017-04-10] MEDS ORDERED: RIZATRIPTAN 5 MG TABLET PO PRN (15:00)
[2017-04-10] MEDS: HYDROCODONE/APAP 5mg/325mg TABLET PO PRN (17:41)
--- NOTE | 2017-04-10 18:52 | General Surgery Progress Note ---
Subjective Patient reports: feels better, pain is less (states the Toradol has been very helpful), tolerating liquids well (fulls), voiding w/o difficulty, no bowel movement (in colostomy yet), afebrile - Vital Signs Last Vital Signs Temp 98.6 F 04/10/17 13:00 Pulse 94 04/10/17 13:00 Resp 20 04/10/17 15:00 BP 151/67 H 04/10/17 13:00 Pulse Ox 95 04/10/17 13:00 - Laboratory Result Diagrams: 04/10/17 04:26 04/10/17 04:26 - Abnormal Exam Respiratory: other (crackles bilateral) Abdominal: hypoactive bowel sounds - Normal Exam General: awake, alert Cardiovascular: regular rhythm, regular rate Abdominal: incision(s) (dressing in tace), other (colostomy is moist and pink) Psychiatric: normal affect Neurological: CN 2-12 grossly intact Assessment and Plan (1) Colostomy care Current Visit: Yes Status: Acute (2) Stercoral ulcer of large intestine Current Visit: Yes Status: Acute Plan: She is doing very well for PO #2 Eating full liquids without nausea. Voiding without difficulty. Ambulating without difficulty. Will transfer to surgical floor. Continue current care. Hospital Course Summary Disclaimer: The visit summary below is not to be considered part of the above Progress Note. Hospital Course: 04/09 POD #1 66-year-old female status post exploratory laparotomy secondary to stercoral perforation of sigmoid colon. Status post sigmoid resection, Maria Elena's pouch and creation of end colostomy. Patient doing well this morning. PLAN Will continue with current the care at this time. Will go ahead and begin the patient on some clear liquids. Will continue with ongoing broad-spectrum antibiotics. 04/10/17 18:59 She is doing very well for PO #2 Eating full liquids without nausea. Voiding without difficulty. Ambulating without difficulty. Will transfer to surgical floor. Continue current care 04/10/17 19:00
[2017-04-11] MEDS: MetroNIDAZOLE PB 500 MG/100 ML BAG IV SCH ×3 (04:35→18:15)
[2017-04-11] MEDS: ONDANSETRON 4 MG/2 ML INJECTION IVP PRN ×2 (06:29→12:11)
[2017-04-11] MEDS: CLINDAMYCIN PB 600 MG/50 ML BAG IV SCH ×3 (06:34→21:25)
[2017-04-11] MEDS: POTASSIUM CHLORIDE INJ 10 MEQ in NS 1,000 ML IV SCH (07:41)
[2017-04-11] MEDS ORDERED: NS with KCL 20 mEq 1,000 ML IV SCH (07:45)
[2017-04-11] MEDS: KETOROLAC 15 MG/ML INJECTION IVP PRN ×2 (08:00→18:16)
[2017-04-11] MEDS: HYDROCODONE/APAP 5mg/325mg TABLET PO PRN ×2 (09:01→17:05)
[2017-04-11] MEDS ORDERED: Bisacodyl EC TAB 5 MG TABLET PO ONE ×2 (09:02→18:04)
--- NOTE | 2017-04-11 09:15 | Progress Note ---
DATE 04/10/2017 FINDINGS Mrs. Bishop was seen this evening on rounds. She states that she is feeling significantly better. She denies any element nausea. VITALS: Afebrile. Normotensive. Please refer to EMR. CHEST: Clear to auscultation bilaterally. HEART: Regular rate and rhythm. Normal S1 and S2 without gallops, murmurs or clicks. ABDOMEN: Palpation of the abdomen reveals it to be soft with only minimal incisional tenderness being present this evening. Colostomy is pink and viable. One can see a small amount of air within the colostomy appliance. ASSESSMENT 66-year-old female with stercoral perforation. Status post exploratory laparotomy, sigmoid resection, creation of end colostomy and Maria Elena's pouch. Patient doing well. PLAN Will go ahead and advance diet to full liquids. Will likely transfer out to surgical floor tomorrow. I am pleased with the patient's progress. [facility]
[2017-04-11] MEDS: PANTOPRAZOLE 40 MG INJECTION IVP SCH (09:33)
[2017-04-11] MEDS: ENOXAPARIN 40 MG/0.4 ML INJECTION SQ SCH (09:33)
[2017-04-11] MEDS: CITALOPRAM 40 MG TABLET PO SCH (09:33)
[2017-04-11] MEDS: BuPROPion SR 150mg (12HR) TABLET PO SCH (09:33)
[2017-04-11] MEDS: SENNA + DOCUSATE TABLET PO SCH (09:33)
[2017-04-11] MEDS: GENTAMICIN 120 MG in NS 100 ML IV SCH (09:34)
--- NOTE | 2017-04-11 11:13 | Pharmacy Consult-Antibiotics ---
Pharmacy Consult-Gentamicin - Laboratory Information Gentamicin Gentamicin Trough 1.6 UG/ML (0-2) 04/11/17 07:22 WBC 8.7 T/MM3 (4.5-11.0) 04/11/17 07:22 BUN 6.0 MG/DL (7-17) L 04/11/17 07:22 Creatinine 0.6 MG/DL (0.7-1.2) L 04/11/17 07:22 - Consult Information Gentamicin trough close to high range so will change gentamicin to 160mg IV q18h. Will continue to monitor and adjust accordingly. Thank you.
[2017-04-11] MEDS: NS IV SCH (15:19)
[2017-04-11] MEDS: MICAFUNGIN IV SCH (15:19)
--- NOTE | 2017-04-11 15:37 | Progress Note ---
DATE: 04/11/17 FINDINGS Ms. Bishop today is without complaints. She is having a slight component of nausea. Denies significant abdominal pain. VITALS: Afebrile. Normotensive. Current vitals include temperature 97.5, pulse 81, respirations 16, blood pressure 151/74, SAO2 93% on room air. HEENT: Normocephalic. Pupils are equally round and react to light and accommodation. CHEST: Clear to auscultation bilaterally. HEART: Regular rate and rhythm. Normal S1 and S2 without gallops, murmurs or clicks. ABDOMEN: Dressing was removed and her incision at this time is clean, dry, and intact. Palpation of the abdomen revealed it to be soft with only minimal incisional tenderness being present. Colostomy is present within the left lower quadrant. Colostomy is somewhat edematous but remains pink and viable. LABORATORY/RADIOGRAPHIC EVALUATION The patient's cultures are coming back from the peritoneum. I do see that she has Alesha species present that is not albicans. Her cultures are polymicrobial in nature. White count stable at 8.7. Hemoglobin stable at 10.0. ASSESSMENT 66-year-old female with stercoral perforation of sigmoid colon. Status post sigmoidectomy, creation of Maria Elena's pouch, end colostomy, mobilization of splenic flexure. Patient doing well. PLAN Will add antifungal to antibiotic regimen. Will go ahead and consult Infectious Disease for antibiotic recommendations. Will continue on full liquid diet at this time. Overall pleased with the patient's progress. [facility]
[2017-04-11] MEDS: PROCHLORPERAZINE 10 MG/2 ML INJECTION IVP PRN (17:05)
[2017-04-11] MEDS: SALINE FLUSH 10ml SYRINGE IVF PRN ×2 (17:05→21:26)
[2017-04-11] MEDS ORDERED: MAG-AL + SIM ORAL LIQUID 30ml PO PRN (18:03)
[2017-04-11] MEDS ORDERED: NS FLUSH BAG 500ml IV PRN (21:20)
[2017-04-12] MEDS ORDERED: GENTAMICIN 160 MG in NS 100 ML IV SCH
[2017-04-12] MEDS: KETOROLAC 15 MG/ML INJECTION IVP PRN ×4 (00:17→19:22)
[2017-04-12] MEDS: SALINE FLUSH 10ml SYRINGE IVF PRN ×9 (00:18→21:11)
[2017-04-12] MEDS: MetroNIDAZOLE PB 500 MG/100 ML BAG IV SCH ×2 (02:15→10:39)
[2017-04-12] MEDS: CLINDAMYCIN PB 600 MG/50 ML BAG IV SCH (04:23)
[2017-04-12] MEDS: ONDANSETRON 4 MG/2 ML INJECTION IVP PRN ×2 (06:40→13:00)
[2017-04-12] MEDS: BuPROPion SR 150mg (12HR) TABLET PO SCH (08:33)
[2017-04-12] MEDS: HYDROCODONE/APAP 5mg/325mg TABLET PO PRN ×2 (08:33→18:25)
[2017-04-12] MEDS: ENOXAPARIN 40 MG/0.4 ML INJECTION SQ SCH (08:34)
[2017-04-12] MEDS: CITALOPRAM 40 MG TABLET PO SCH (08:34)
[2017-04-12] MEDS: PANTOPRAZOLE 40 MG INJECTION IVP SCH (08:34)
[2017-04-12] MEDS: SENNA + DOCUSATE TABLET PO SCH (08:37)
--- NOTE | 2017-04-12 09:56 | General Surgery Progress Note ---
Subjective Patient reports: feels better, pain is less, tolerating liquids well (fulls), voiding w/o difficulty, flatus (small amount), afebrile Narrative: States the PO K+ is very difficult to get down. - Vital Signs Last Vital Signs Temp 98.5 F 04/12/17 07:33 Pulse 81 04/12/17 07:33 Resp 20 04/12/17 07:33 BP 159/72 H 04/12/17 07:33 Pulse Ox 91 04/12/17 07:33 - Laboratory Result Diagrams: 04/12/17 04:22 04/12/17 09:39 Laboratory Tests 04/12/17 04/12/17 09:39 09:39 Potassium 2.9 L* Magnesium 1.5 L - Microbiogy Microbiology 04/08/17 13:40 Peritoneum Gram Stain - Final 04/08/17 13:40 Peritoneum Surgical Culture - Final Alesha species, not albicans Lactobacillus species Anaerobic Gram-Positive Cocci Anaerobic Gram-Negative Juni - Normal Exam General: awake, alert, no acute distress Cardiovascular: regular rhythm, regular rate Respiratory: clear all coleman Abdominal: BS normo active x4 (gurgling today), incision(s) (CDI ismael in tact , no erythema, ecchymosis.) Wound/Stoma/Drain Assessment - Stoma Assessment Left Lower Abdomen Bowel Diversion Stoma Type: Colostomy Bowel Diversion Stoma Appearance: Beefy Red, Protruding, Mild Edema Collection Device: Drainable Pouch, Two-piece Drainage Description: Flatus Assessment and Plan (1) Colostomy care Current Visit: Yes Status: Acute (2) Stercoral ulcer of large intestine Current Visit: Yes Status: Acute Plan: POD #4 Hypokalemia, K+ 2.7 this am, supplements in progress. Tolerating full liquids and air in colostomy bag, will advance to regular diet. Incision looks great at this point, she is at high risk of incisional infection from perforated sigmoid. Home Health is on board and will continue with colostomy teaching and supplies once she is at home. Anticipate discharge in 1-2 days if we get more bowel function. UPDATE: 10:00am K+ was 2.9, 4 bags KCl ordered with repeat serum K+ at 1630. Also ordered PO K+ 20 mEq TIDWM to start tomorrow, daily labs. Magnesium also slightly low at 1.5, will give 1G Magnesium. Hospital Course Summary Disclaimer: The visit summary below is not to be considered part of the above Progress Note. Hospital Course: 04/09 POD #1 66-year-old female status post exploratory laparotomy secondary to stercoral perforation of sigmoid colon. Status post sigmoid resection, Maria Elena's pouch and creation of end colostomy. Patient doing well this morning. PLAN Will continue with current the care at this time. Will go ahead and begin the patient on some clear liquids. Will continue with ongoing broad-spectrum antibiotics. 04/10/17 18:59 She is doing very well for PO #2 Eating full liquids without nausea. Voiding without difficulty. Ambulating without difficulty. Will transfer to surgical floor. Continue current care 04/10/17 19:00 04/12/17 10:01 POD #4 Hypokalemia, K+ 2.7 this am, supplements in progress. Tolerating full liquids and air in colostomy bag, will advance to regular diet. Incision looks great at this point, she is at high risk of incisional infection from perforated sigmoid. Home Health is on board and will continue with colostomy teaching and supplies once she is at home. Anticipate discharge in 1-2 days if we get more bowel function. UPDATE: 10:00am K+ was 2.9, 4 bags KCl ordered with repeat serum K+ at 1630. Also ordered PO K+ 20 mEq TIDWM to start tomorrow, daily labs. Magnesium also slightly low at 1.5, will give 1G Magnesium. 04/12/17 13:05
--- NOTE | 2017-04-12 11:00 | Infectious Disease Consult ---
Infectious Disease Consult Date of Consultation: 04/12/17 Requesting Physician: Jayson Rivera Reason for Consultation: antibiotics recs History of Present Illness: Ms. Bishop is a 66 y/o woman who developed abdominal pain last Saturday. She reports that she thought perhaps she had a UTI. She had a CT (renal stone protocol without contrast) on 04/05 that didn't show any urinary problems but it showed constipation. She woke up Saturday morning with severe abdominal pain, and came back to the ED. She had a CT with contrast that showed pneumoperitoneum. She was taken urgently to the OR on Saturday by Dr. Rivera and found to have a perforated sigmoid colon. There was some purulence cultured in surgery, and it growing "scant growth" of multiple organisms. She had a Harmann procedure. I've been asked to help with her antibiotics. She is feeling better today and states her diet will be advanced to regular today. Medications Home Medications Medication Instructions Recorded Confirmed Type BuPROPion SR [Wellbutrin Sr] 150 mg PO DAILY 04/08/17 04/08/17 History Citalopram [Celexa] 40 mg PO DAILY 04/08/17 04/08/17 History Rizatriptan Benzoate [Maxalt] 10 mg PO PRN PRN 04/08/17 04/08/17 History Allergies Allergy/AdvReac Type Severity Reaction Status Date / Time Penicillins Allergy Severe ANAPHYLACTIC Verified 04/08/17 07:30 [facility] Patient Stated Medical History Sleep Apnea No Hx Renal Disease No Clinic Medical History (Last Updated 01/22/17 @ 17:05 by Mariza Jensen Constanza) Perforated viscus (Acute Medical) Colostomy care (Acute Medical) Stercoral ulcer of large intestine (Acute Medical) Depression (Acute Medical) Surgical History: VAGINAL HYSTERECTOMY 1984. LEFT KNEE SCOPE. EGD WITH DILATATION 2002 AT [facility]. ROU-EN-Y FOR ADHESIVE BAND/STRICURE FROM ULCERS AT [facility] 2003. Family History: Sister - Breast cancer. 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 Absent: diarrhea - Integumentary/Breasts Integumentary: Absent: rash - Neurological Neurological: Absent: headache(s) Exam Vital Signs: Temperature 98.5 F 04/12/17 07:33 Pulse Rate 81 04/12/17 07:33 Respiratory Rate 20 04/12/17 07:33 Blood Pressure 159/72 H 04/12/17 07:33 Pulse Oximetry 91 04/12/17 07:33 Height/Weight/BMI: Weight 57.5 kg - Constitutional Present: no acute distress, well nourished, well developed, average body habitus - Routine HEENT Exam Head: Present: normocephalic, atraumatic Eye: Present: EOMI, PERRL ENT: Present: mucous membranes moist, dentition normal - Routine Neck Exam Present: supple - Routine Respiratory Exam Present: CTA bilaterally. Absent: accessory muscle use - Routine Cardiovascular Exam Present: RRR. Absent: murmur - Routine Abdominal Exam Present: soft, non tender Comments: Colostomy appears healthy, not much in bag. Some bowel sounds heard on R side - Routine Extremities Exam Absent: cyanosis, clubbing, edema, joint swelling - Routine Skin Exam Present: intact. Absent: rash Comments: abdominal incision is intact - Routine Neurological Exam Present: alert, oriented X3, CN II-XII intact. Absent: motor deficit - Routine Psychiatric Exam Present: normal affect, normal thought process Results - Labs CBC & Chem 7: 04/12/17 04:22 04/12/17 09:39 Microbiology Results: Microbiology 04/08/17 13:40 Peritoneum Gram Stain - Final 04/08/17 13:40 Peritoneum Surgical Culture - Final Alesha species, not albicans Lactobacillus species Anaerobic Gram-Positive Cocci Anaerobic Gram-Negative Juni Impression: Sepsis secondary to perforated sigmoid colon S/p exploratory laparotomy, sigmoid resection, creation of Maria Elena's pouch and end colostomy, mobilization of splenic flexure on 04/08, cultures polymicrobial (scant growth of C. non-albicans, lactobacillus, anaerobes) Penicillin allergy (anaphylaxis) but patient states she can tolerate cephalosporins Recommendation: Recommend changing to ceftriaxone and flagyl. Continue micafungin for now. I asked the micro lab to check the sensitivity to fluconazole of the Alesha. They will have to send it out. I'll see her again on Saturday. Once she's improved enough to be discharged, I'm hoping to send her on an oral regimen.
--- NOTE | 2017-04-12 11:04 | Pharmacy Consult-Antibiotics ---
Pharmacy Consult-Gentamicin - Laboratory Information Gentamicin Gentamicin Trough 1.6 UG/ML (0-2) 04/11/17 07:22 WBC 7.9 T/MM3 (4.5-11.0) 04/12/17 04:22 BUN 4.0 MG/DL (7-17) L 04/12/17 04:22 Creatinine 0.6 MG/DL (0.7-1.2) L 04/12/17 04:22 GENTAMICIN THERAPY DAY 4. Tx for perforated bowel. Renal fx is stable. Therapy appears stable with the change to GENTAMICIN 160mg IV q 18 hours. This gives calculated peak/trough of 9.9 & 0.4 mcg/ml respectively. No changes at this time. thank you.
[2017-04-12] MEDS: LIDOCAINE 1% INJ 10 MG, POTASSIUM CHLORIDE INJ 10 MEQ in NS 100 ML IV SCH ×5 (11:58→16:07)
[2017-04-12] MEDS ORDERED: MAGNESIUM SULFATE 1gm PREMIX 1 GM/100 ML BAG IV ONE (13:02)
--- NOTE | 2017-04-12 14:19 | Progress Note ---
DATE: 04/12/17 FINDINGS Ms. Bishop today was in good spirits. She states that she continues to improve. She was eating a regular lunch. VITALS: Afebrile. Normotensive. Please refer to EMR. ABDOMEN: Soft, nontender. There is some air present within her colostomy. No stool is still present. LABORATORY/RADIOGRAPHIC EVALUATION The patient's hemoglobin remains stable at 10.6. White count is stable at 7.9. BMP was obtained today and her potassium was low at 2.7. She has been given some oral potassium supplementation and is now in the process of receiving some intravenous potassium supplementation. ASSESSMENT 66-year-old female with history for stercoral perforation requiring exploratory laparotomy, sigmoid resection, creation of Maria Elena's pouch and end colostomy. Patient doing well. PLAN We did obtain an Infectious Disease consult given the polymicrobial nature of her peritoneal cultures in conjunction with yeast being noted. I have reviewed consult note performed by Infectious Disease. From a surgical standpoint will continue with current care. As stated above we have replaced potassium and magnesium. Hopefully over the course of the weekend the patient will be able to be discharged. I am pleased at this time with the patient's progress. GARCIA
[2017-04-12] MEDS: CEFTRIAXONE 1 G in NS 100 ML IV SCH (17:26)
[2017-04-12] MEDS: POLYETHYL GLYCOL 3350 17gm PACKET PO SCH (18:08)
[2017-04-12] MEDS: MetroNIDAZOLE 500 MG TABLET PO SCH (18:08)
[2017-04-12] MEDS: PROCHLORPERAZINE 10 MG/2 ML INJECTION IVP PRN (18:11)
[2017-04-12] MEDS: NS IV SCH (19:25)
[2017-04-12] MEDS: MICAFUNGIN IV SCH (19:25)
[2017-04-13] MEDS: KETOROLAC 15 MG/ML INJECTION IVP PRN ×3 (04:23→22:54)
[2017-04-13] MEDS: SALINE FLUSH 10ml SYRINGE IVF PRN ×3 (04:23→22:55)
[2017-04-13] MEDS: POLYETHYL GLYCOL 3350 17gm PACKET PO SCH (09:20)
[2017-04-13] MEDS: MetroNIDAZOLE 500 MG TABLET PO SCH ×2 (09:20→18:45)
[2017-04-13] MEDS: SENNA + DOCUSATE TABLET PO SCH (09:20)
[2017-04-13] MEDS: BuPROPion SR 150mg (12HR) TABLET PO SCH (09:20)
[2017-04-13] MEDS: CITALOPRAM 40 MG TABLET PO SCH (09:20)
[2017-04-13] MEDS: ENOXAPARIN 40 MG/0.4 ML INJECTION SQ SCH (09:23)
[2017-04-13] MEDS: PANTOPRAZOLE 40 MG INJECTION IVP SCH (09:36)
[2017-04-13] MEDS: CEFTRIAXONE 1 G in NS 100 ML IV SCH (11:55)
--- NOTE | 2017-04-13 12:20 | Progress Note ---
DATE 04/13/2017 FINDINGS Ms. Bishop is without complaints today. She has still been without any stool output from her colostomy. She is tolerating a regular diet. She denies any nausea. PHYSICAL EXAM VITAL SIGNS: Temperature 97.9, pulse 84, respirations 18, blood pressure 135/88 , SAO2 95% on room air. CHEST: Clear to auscultation bilaterally. HEART: Regular rate and rhythm. Normal S1 and S2 without gallops, murmurs or clicks. ABDOMEN: Soft. Minimal incisional tenderness. Colostomy is pink and viable. There is a fair amount of air within her colostomy bag but no stool at this time. LABORATORY/RADIOGRAPHIC EVALUATION The patient had a CBC today and her white count remains stable at 8.5. Hemoglobin stable 11.3. BMP was obtained today and her potassium is improved but still remains low at 3.0. ASSESSMENT 66-year-old female with history for stercoral perforation, status post sigmoid resection, creation of end colostomy and Maria Elena's pouch. Patient doing well. PLAN The patient has already been given orders for oral cathartic and potassium supplementation. Will continue with current care. Recheck lab work tomorrow morning. [id number]
[2017-04-13] MEDS: NS IV SCH (14:57)
[2017-04-13] MEDS: MICAFUNGIN IV SCH (14:57)
[2017-04-13] MEDS: HYDROCODONE/APAP 5mg/325mg TABLET PO PRN (19:57)
[2017-04-14] MEDS: HYDROCODONE/APAP 5mg/325mg TABLET PO PRN ×4 (06:03→19:34)
[2017-04-14] MEDS: SALINE FLUSH 10ml SYRINGE IVF PRN ×3 (07:18→20:21)
[2017-04-14] MEDS: KETOROLAC 15 MG/ML INJECTION IVP PRN ×3 (07:19→21:59)
[2017-04-14] MEDS: BuPROPion SR 150mg (12HR) TABLET PO SCH (08:22)
[2017-04-14] MEDS: MetroNIDAZOLE 500 MG TABLET PO SCH ×2 (08:23→17:34)
[2017-04-14] MEDS: SENNA + DOCUSATE TABLET PO SCH (08:23)
[2017-04-14] MEDS: PANTOPRAZOLE 40 MG INJECTION IVP SCH (08:23)
[2017-04-14] MEDS: CITALOPRAM 40 MG TABLET PO SCH (08:23)
[2017-04-14] MEDS: ENOXAPARIN 40 MG/0.4 ML INJECTION SQ SCH (08:23)
[2017-04-14] MEDS: POLYETHYL GLYCOL 3350 17gm PACKET PO SCH (08:24)
[2017-04-14] MEDS: CEFTRIAXONE 1 G in NS 100 ML IV SCH (11:36)
[2017-04-14] MEDS: NS IV SCH (15:12)
[2017-04-14] MEDS: MICAFUNGIN IV SCH (15:12)
[2017-04-14] MEDS: ONDANSETRON 4 MG/2 ML INJECTION IVP PRN (20:21)
[2017-04-15] MEDS: ACETAMINOPHEN 325 MG TABLET PO PRN ×2 (04:56→11:28)
--- NOTE | 2017-04-15 07:42 | Progress Note ---
DATE 04/14/2017 FINDINGS Ms. Bishop was without complaints today. She has now had some stool through her colostomy. The patient states that she has not had formal colostomy training and does not know yet how to change her appliance. She has had some minimal nausea. VITALS: Afebrile. Normotensive. Please refer to EMR. ABDOMEN: Soft, nontender. Stool was present within her ostomy. ASSESSMENT 66-year-old female status post exploratory laparotomy, sigmoid resection, creation of Maria Elena's pouch and end colostomy secondary to perforated colon from stercoral perforation. Patient doing well. PLAN The patient's potassium has returned to normal at 3.7. White count stable at 8.7. Hemoglobin stable at 11.9. Will have the patient obtain more formal training from nursing staff. Her sensitivities are still pending from her contaminated peritoneal fluid at the time of her surgery. Dr. Villanueva from Infectious Disease had commented on a prior note that she would review sensitivities and give additional recommendations of oral antibiotics prior to discharge on Saturday. Will plan on keeping the patient today for colostomy teaching and continued IV antibiotics for her contaminated peritoneal cavity and await Dr. Villanueva's recommendations for oral antibiotics tomorrow. The patient will likely be discharged tomorrow. [facility]
[2017-04-15] MEDS: MetroNIDAZOLE 500 MG TABLET PO SCH (08:34)
[2017-04-15] MEDS: BuPROPion SR 150mg (12HR) TABLET PO SCH (08:35)
[2017-04-15] MEDS: ENOXAPARIN 40 MG/0.4 ML INJECTION SQ SCH (08:35)
[2017-04-15] MEDS: POLYETHYL GLYCOL 3350 17gm PACKET PO SCH (08:35)
[2017-04-15] MEDS: PANTOPRAZOLE 40 MG INJECTION IVP SCH (08:35)
[2017-04-15] MEDS: CITALOPRAM 40 MG TABLET PO SCH (08:35)
[2017-04-15] MEDS: SENNA + DOCUSATE TABLET PO SCH (08:36)
[2017-04-15] MEDS: SALINE FLUSH 10ml SYRINGE IVF PRN (08:36)
--- NOTE | 2017-04-15 09:31 | Progress Note ---
Subjective Date: 04/15/17 Subjective: Ms. Bishop reports that she's doing very well. She denies any fever, chills, N/V or diarrhea. Her ostomy is working without problems. Exam Vital Signs: Temperature 96.8 F 04/15/17 07:37 Pulse Rate 76 04/15/17 07:37 Respiratory Rate 19 04/15/17 07:37 Blood Pressure 144/73 H 04/15/17 07:37 Pulse Oximetry 95 04/15/17 04:00 Height/Weight/BMI: Weight 54 kg - Constitutional Present: no acute distress, well nourished, well developed - Routine HEENT Exam Head: Present: normocephalic, atraumatic Eye: Present: EOMI, PERRL ENT: Present: mucous membranes moist, dentition normal - Routine Neck Exam Present: supple - Routine Respiratory Exam Present: CTA bilaterally. Absent: accessory muscle use - Routine Cardiovascular Exam Present: RRR. Absent: murmur - Routine Abdominal Exam Present: soft, normoactive bowel sounds, non distended, ostomy (appears heathy) . Absent: tenderness - Routine Extremities Exam Absent: cyanosis, clubbing, edema - Routine Skin Exam Present: intact. Absent: rash Comments: abdominal incision is approximated, ismael in place, no redness - Routine Neurological Exam Present: alert, oriented X3, CN II-XII intact. Absent: motor deficit - Routine Psychiatric Exam Present: normal affect, normal thought process Results - Labs CBC & Chem 7: 04/15/17 04:17 04/15/17 04:17 Microbiology Results: Microbiology 04/08/17 13:40 Isolate for Id and/or Suscep Organism Identification - Final 04/08/17 13:40 Peritoneum Gram Stain - Final 04/08/17 13:40 Peritoneum Surgical Culture - Final Alesha species, not albicans, Fluconazole sensitivity pending, scant growth Lactobacillus species, scant growth Anaerobic Gram-Positive Cocci, scant growth Anaerobic Gram-Negative Juni, scant growth Impression: Sepsis secondary to perforated sigmoid colon S/p exploratory laparotomy, sigmoid resection, creation of Maria Elena's pouch and end colostomy, mobilization of splenic flexure on 04/08, cultures polymicrobial (scant growth of C. non-albicans, lactobacillus, anaerobes) Penicillin allergy (anaphylaxis) but patient tolerates cephalosporins Recommendation: I'm still waiting for the fluconazole susceptibility of the Alesha species, but I would recommend changing her to fluconazole 400mg daily, cipro 500mg po bid and flagyl 500mg po bid for another week. This should complete 2 weeks of antibiotics post-op. OK to discharge home. F/U in my office on at 2:40.
[2017-04-15] MEDS ORDERED: FLUCONAZOLE 100 MG TABLET PO SCH (09:45)
[2017-04-15] MEDS ORDERED: CIPROFLOXACIN 500 MG TABLET PO SCH (09:45)
[2017-04-15 11:57] VITALS: BP 151/85; PULSE 72; RESP 18; O2SAT 98
[2017-04-15 12:38] VITALS: TEMP 98.1
[2017-04-15] MEDS: KETOROLAC 15 MG/ML INJECTION IVP PRN (13:17)
--- NOTE | 2017-04-16 10:38 | Wound Care Progress Note ---
Wound Center Progress Note: Pt seen in the AM for colostomy appliance change. Pt has no complaints of pain. Pt reports she had watching videos of pouch changes on the internet over the weekend. Pouch removed, peristomal area cleaned with water, 1 pc drainable pouch reapplied. Stoma is red, edematous, moist, and upright. Peristomal skin WDNL. Education given concerning pouch changes, sizing of opening to fit around stoma, peristomal skin care, and all other questions answered. Pt encouraged to call wound clinic with any other questions.
--- NOTE | 2017-04-16 17:16 | Discharge Summary ---
Discharge Information Date of admission: 04/08/17 11:10 Attending Physician: Jayson Rivera MD Primary care physician: Albina Dorman MD Consults: 04/11/17 07:37 Infusion Therapy Consult [CONS] Routine Comment: Reason for consultation: eval need for midline or picc 04/11/17 11:17 Physician Consult [CONS] Routine Consulting Provider: Katie Villanueva Reason For Exam: fungal treatment options, etc, post perfed colon Ordering Provider has Notified Counter Weigher: No - Discharge Diagnosis (1) Colostomy care Status: Acute (2) Stercoral ulcer of large intestine Status: Acute (3) Hypokalemia Status: Resolved (4) Hypomagnesemia Status: Resolved - Procedures Procedures: DATE OF SERVICE 04/08/2017 SURGEON Jyason Rivera MD OPERATOR COATING FURNACE Neri Woodward APRN PREOPERATIVE DIAGNOSIS Acute surgical abdomen, abnormal CT scan revealing pneumoperitoneum. POSTOPERATIVE DIAGNOSIS Acute surgical abdomen, abnormal CT scan revealing pneumoperitoneum secondary to sigmoid stercoral perforation. PROCEDURE Exploratory laparotomy, sigmoid resection, creation of Maria Elena's pouch and end colostomy, mobilization of splenic flexure. - Laboratory Labs: 04/15/17 04:17 04/15/17 04:17 Laboratory Tests 04/11/17 04/12/17 04/12/17 07:22 04:22 09:39 Potassium 3.5 L 2.7 L* D 2.9 L* Magnesium 04/12/17 04/12/17 04/13/17 09:39 17:30 04:15 Potassium 3.2 L 3.0 L Magnesium 1.5 L 2.0 D 04/14/17 04/15/17 05:50 04:17 Potassium 3.7 D 4.2 Magnesium - Microbiology Microbiology 04/08/17 13:40 Isolate for Id and/or Suscep Organism Identification - Final 04/08/17 13:40 Peritoneum Gram Stain - Final 04/08/17 13:40 Peritoneum Surgical Culture - Final Alesha species, not albicans Lactobacillus species Anaerobic Gram-Positive Cocci Anaerobic Gram-Negative Juni History of Present Illness HPI: 04/08/2017 BRIEF HISTORY/INDICATIONS Mrs. Bishop is a 66-year-old female whom I was asked to see earlier today through the emergency room as a result of her history and physical findings of severe abdominal pain in conjunction with an abnormal CT scan revealing evidence for pneumoperitoneum. Upon abdominal examination the patient was found to have peritonitis. As a result of the above indications, it was recommended to the patient that she undergo surgical intervention 04/16/17 17:17 Hospital Course This is a general summary of the patient's hospital course. For more details refer to the complete medical record. Hospital course: 04/09 POD #1 66-year-old female status post exploratory laparotomy secondary to stercoral perforation of sigmoid colon. Status post sigmoid resection, Maria Elena's pouch and creation of end colostomy. Patient doing well this morning. PLAN Will continue with current the care at this time. Will go ahead and begin the patient on some clear liquids. Will continue with ongoing broad-spectrum antibiotics. 04/10/17 18:59 She is doing very well for PO #2 Eating full liquids without nausea. Voiding without difficulty. Ambulating without difficulty. Will transfer to surgical floor. Continue current care 04/10/17 19:00 04/12/17 10:01 POD #4 Hypokalemia, K+ 2.7 this am, supplements in progress. Tolerating full liquids and air in colostomy bag, will advance to regular diet. Incision looks great at this point, she is at high risk of incisional infection from perforated sigmoid. Home Health is on board and will continue with colostomy teaching and supplies once she is at home. Anticipate discharge in 1-2 days if we get more bowel function. UPDATE: 10:00am K+ was 2.9, 4 bags KCl ordered with repeat serum K+ at 1630. Also ordered PO K+ 20 mEq TIDWM to start tomorrow, daily labs. Magnesium also slightly low at 1.5, will give 1G Magnesium. Dr. Rich CABRERA, Infectious Disease note; Recommendation: Recommend changing to ceftriaxone and flagyl. Continue micafungin for now. I asked the micro lab to check the sensitivity to fluconazole of the Alesha. They will have to send it out. I'll see her again on Saturday. Once she's improved enough to be discharged, I'm hoping to send her on an oral regimen. 04/13-10/24 PLAN The patient's potassium has returned to normal at 3.7. White count stable at 8.7. Hemoglobin stable at 11.9. Will have the patient obtain more formal training from nursing staff. Her sensitivities are still pending from her contaminated peritoneal fluid at the time of her surgery. Dr. Villanueva from Infectious Disease had commented on a prior note that she would review sensitivities and give additional recommendations of oral antibiotics prior to discharge on Saturday. Will plan on keeping the patient today for colostomy teaching and continued IV antibiotics for her contaminated peritoneal cavity and await Dr. Villanueva's recommendations for oral antibiotics. 04/15/17 Dr Villanueva note: Recommendation: I'm still waiting for the fluconazole susceptibility of the Alesha species, but I would recommend changing her to fluconazole 400mg daily, cipro 500mg po bid and flagyl 500mg po bid for another week. This should complete 2 weeks of antibiotics post-op. OK to discharge home. F/U in my office on Saturday, at 2:40. General surgery note: Colostomy is doing well, eating regular diet, she has replaced the ostomy appliance. Home Health is set up with [facility] for additional colostomy teaching. She will follow up with Dr. Rivera April 23 or , and Dr. Dorman as well in 1-2 weeks. Time spent with patient: discharge greater than 30 minutes DVT Prophylaxis: SCD's, Lovenox GI Prophylaxis: Protonix Discharge Plan - Med Rec/Dispo Referrals/Follow Up: Albina Dorman MD [Family Provider] - 04/30/17 3:00 pm Katie Villanueva MD [Physician] - 04/22/17 2:40 pm ( at 2:40pm) Jayson Rivera MD [Physician] - 04/24/17 9:30 am Pete Instructions: Colostomy Care (DC), Colectomy (DC), Colectomy Diet (DC) Prescriptions: [place]IDAZOLE [Flagyl] 500 mg PO BIDWM #16 tab PEG 3350 17gm PACKET [Miralax] 17 gm PO DAILY PRN #15 packet PRN Reason: Constipation Ciprofloxacin [Cipro] 500 mg PO Q12HR #16 tab Fluconazole [Diflucan] 400 mg PO DAILY #8 tab Hydrocodone/APAP 5/325 [[place] 5/325] 1 - 2 tab PO Q5H PRN #30 tab PRN Reason: Pain Continue Citalopram [Celexa] 40 mg PO DAILY BuPROPion SR [Wellbutrin Sr] 150 mg PO DAILY Rizatriptan Benzoate [Maxalt] 10 mg PO PRN PRN PRN Reason: headache - Disposition [facility] - Dismissal Complete Discharge Instructions are:: Complete
== END 2017-04-15 15:30 | disposition home health service (06) | DRG 331 ==
LOC: ED 07:19 → CCU 10:26 → SUR 10:33 → CCU 11:10 → SRG 04-10 19:55
PROVIDERS: ADMIT Surgery; ATTEND Surgery

== ENCOUNTER 2017-11-18 07:30 | Inpatient (IN) ==
[2017-11-18] MEDS ORDERED: HEPARIN SUB-Q 5,000units/0.5ml INJECTION SQ ONE (09:08)
[2017-11-18] MEDS ORDERED: LIDOCAINE 1% (10mg/ml) 2mL INJ PF SDV ID ONE (09:08)
[2017-11-18] MEDS ORDERED: MetroNIDAZOLE PB 500 MG/100 ML BAG IV SCH (09:15)
[2017-11-18] MEDS ORDERED: LEVOFLOXACIN PB 500 MG/100 ML BAG IV SCH (09:15)
[2017-11-18] MEDS: LR 1,000 ML IV SCH ×4 (11:42→20:15)
[2017-11-18] MEDS ORDERED: BUPIVACAINE 0.25%/EPI 1:200,000 30ml SDV ONE (13:24)
--- NOTE | 2017-11-18 13:33 | Anesthesia Preoperative Report ---
Anesthesia Preoperative Record - Date and Time Date: 11/18/17 Preoperative Diagnosis: Takedown end colostomy K63.3 Proposed Procedure: robotic assisted takedown of colostomy NPO Since Date: 11/17/17 NPO Since Time: 23:00 Allergies/Adverse Reactions: Allergies Allergy/AdvReac Type Severity Reaction Status Date / Time Penicillins Allergy Severe ANAPHYLACTIC Verified 11/18/17 11:23 SHOCK nitrofurantoin AdvReac Severe stomach Verified 11/18/17 11:23 [From Macrobid] cramps - Vital Signs Vital Signs: Temperature 98.4 F 11/18/17 11:21 Pulse Rate 71 11/18/17 12:03 Respiratory Rate 12 11/18/17 11:21 Blood Pressure 154/79 H 11/18/17 11:21 Pulse Oximetry 95 11/18/17 11:21 Height and Weight: Height 1.63 m Weight 56.4 kg Body Mass Index 21.3 - Medications Inpatient Medications: Current Medications Levofloxacin/Dextrose (Levaquin 500 Mg Premix) 500 mg in 100 mls @ 100 mls/hr IV PREOP LAURI Metronidazole/Sodium Chloride (Flagyl Iv Premix) 500 mg in 100 mls @ 100 mls/ hr IV PREOP LAURI Last Admin: 11/18/17 13:08 Dose: 100 mls/hr Lactated Ringer's (Lactated Ringers) 1,000 mls @ 50 mls/hr IV .Q20H LAURI Last Admin: 11/18/17 11:42 Dose: 50 mls/hr Sodium Chloride (Iv Flush) 10 ml IV PRN PRN PRN Reason: Flushing Home Medications: Home Medications Medication Instructions Recorded Confirmed Type BuPROPion SR [Wellbutrin Sr] 150 mg PO DAILY 04/08/17 11/18/17 History Rizatriptan Benzoate [Maxalt] 10 mg PO PRN PRN 04/08/17 11/18/17 History PEG 3350 17gm PACKET [Miralax] 17 gm PO DAILY PRN #15 packet 04/15/17 11/18/17 Rx Lexapro (escitalopram) 20 mg tablet 20 mg PO DAILY tab 07/17/17 11/18/17 History Is Patient on Beta Antoinette?: No - Medical History Respiratory: DENIES: Asthma, Bronchitis, Chronic Obstructive Pulmonary Disease (COPD), Dyspnea, Orthopnea, Pulmonary Embolism, Pneumonia, Upper Respiratory Infection, Pulmonary Edema, Sleep Apnea, Tuberculosis, Other Cardiovascular: DENIES: Abnormal EKG, Angina, Arrhythmia, Congestive Heart Failure, Coronary Artery Disease, Heart Murmur, Hypertension, Hypotension, Myocardial Infarction, Rheumatic Fever, Valvular Heart Disease, Other Gastrointestional: Reports: Ulcer (STERCORAL ULCER OF LARGE INTESTINE), Other ( PERFORATED SIGMOID COLON) DENIES: Obstructive Bowel, Hepatitis, Cirrhosis, Gastroesophageal Reflux Disease, Gastrointestinal Bleeding, Hiatal Hernia, Morbid Obesity Neuro/Musculoskeletal: Reports: Depression, Headaches Denies: Back Problems, Cerebrovascular Accident, Loss of Consciousness, Muscle Weakness, Neuromuscular Disorder, Paralysis, Paresthesia, Syncope, Seizures, Other Renal/Endocrine: DENIES: Diabetes Mellitus Type 1, Diabetes Mellitus Type 2, Renal Failure, Dialysis, Thyroid Disease, Weight Loss, Weight Gain, Other Other History: DENIES: Anesthesia Reactions, Now, Blood Transfusions, Chemotherapy , Cancer, Hemophilia, Malignant Hyperthermia, Sickle Cell Disease, Other - Surgical History Cardiac Surgeries/Treatments: DENIES: Pacemaker GI Surgery/Treatments: Reports: Colon Resection (2017), Colonoscopy, Other ( COLOSTOMY) Surgery/Treatment: DENIES: Dialysis Musculoskeletal Surgery/Tx: Reports: Knee Arthroscopy (left) Reproductive Surgery/Treatment: Reports: Hysterectomy (1983) DENIES: Mastectomy Hx Family Anesthesia Reaction: No - Social History Smoking Status: Never smoker Hx Chewing Tobacco Use: No Second Hand Exposure: No Substance Use Type: does not use Alcohol Intake: never Alcohol Intake Frequency: does not drink - Pertinent Findings Laboratory: CBC and BMP 11/18/17 11:40 11/18/17 11:40 BMP 11/18/17 11:40 Sodium 145 Potassium 4.2 Chloride 111 H Carbon Dioxide 21 L BUN 19.0 H Creatinine 0.7 Glucose 95 Calcium 8.9 EKG: Sinus Rhythm - Physical Exam Respiratory Exam: Present: lungs clear, bilateral breath sounds equal Cardiovascular Exam: Present: regular rate and rhythm, no murmur - Airway Assessment Mallampati Score: I TMD: 3 Fingerbreadths Neck Extension: good Overall Assessment: no airway concerns - ASA ASA Score: 3 - Plan Anesthesia: General Inhalation Gases - Discussion Discussion: Discussed risks/options/alternatives of anesthesia and questions answered. Patient consents. Nursing pain assessment noted. Attestation Statement: Prior to the delivery of any anesthetic medication, I examined the patient, developed the plan, obtained the patient's consent and discussed the risk and benefits of the procedure with the patient/guardian.
[2017-11-18] MEDS ORDERED: SCOPOLAMINE 1mg/3 days PATCH (Eq. 1.5 Patch) TD ONE (13:41)
[2017-11-18] MEDS ORDERED: FentaNYL 250 MCG/5 ML INJECTION ONE (13:42)
[2017-11-18] MEDS ORDERED: MIDAZOLAM 2mg/2ml INJECTION ONE (13:43)
[2017-11-18] MEDS ORDERED: KETAMINE 500 MG/10 ML INJECTION ONE (13:43)
[2017-11-18] MEDS ORDERED: ROCURONIUM 50 MG/5 ML INJECTION IVP ONE ×2 (13:44→15:22)
[2017-11-18] MEDS ORDERED: PROPOFOL 20 ML ONE (13:44)
[2017-11-18] MEDS ORDERED: DiphenhydrAMINE 50 MG/ML INJECTION ONE (14:01)
[2017-11-18] MEDS ORDERED: ONDANSETRON 4 MG/2 ML INJECTION ONE ×2 (14:01→19:35)
[2017-11-18] MEDS ORDERED: DEXAMETHASONE 4 MG/ML INJECTION ONE (14:01)
[2017-11-18] MEDS ORDERED: BUPIVACAINE 0.25%/EPI 1:200,000 30ml SDV SQ ONE (14:37)
[2017-11-18] MEDS ORDERED: INDOCYANINE GREEN 25mg INJECTION IVP ONE ×2 (16:59→17:54)
[2017-11-18] MEDS ORDERED: INDOCYANINE GREEN 25mg INJECTION ONE (17:01)
[2017-11-18] MEDS ORDERED: SUGAMMADEX 200mg/2ml INJECTION IVP ONE (19:38)
[2017-11-18] MEDS ORDERED: HYDROMORPHONE 2 MG/ML INJECTION IVP PRN ×2 (19:50→20:21)
--- NOTE | 2017-11-18 20:10 | General Surgery Procedure Note ---
Date of Procedure: 11/18/17 Surgeon: Nicole Card Hand: Neri Jose APRN Postoperative Diagnosis: History of Stecoral ulcer of colon, takedown colostomy Procedure: Robotic assisted with conversion to open laparotomy with takedown of end colostomy with primary anastomosis with takedown of splenic flexure, and partial colectomy. Estimated Blood Loss: See Anesthesia Record.
[2017-11-18] MEDS ORDERED: DiphenhydrAMINE 50 MG/ML INJECTION IVP PRN ×2 (20:21→21:16)
[2017-11-18] MEDS ORDERED: ONDANSETRON ODT 4 MG TABLET PO PRN (20:59)
[2017-11-18] MEDS ORDERED: NS 1,000 ML IV SCH (20:59)
[2017-11-18] MEDS: ONDANSETRON 4 MG/2 ML INJECTION IVP PRN (21:02)
[2017-11-18] MEDS: SALINE FLUSH 10ml SYRINGE IV PRN (21:02)
[2017-11-18] MEDS: HYDROMORPHONE 2 MG/ML INJECTION IVP PRN ×2 (21:30→23:34)
[2017-11-18] MEDS: MORPHINE PCA 30 MG/30 ML SYRINGE IV PRN (21:45)
[2017-11-18] MEDS: KETOROLAC 15 MG/ML INJECTION IVP PRN (22:48)
[2017-11-19] MEDS: D5-1/2NS with KCL 20mEq 1,000 ML IV SCH ×3 (01:36→18:06)
[2017-11-19] MEDS: HYDROMORPHONE 2 MG/ML INJECTION IVP PRN (03:15)
[2017-11-19] MEDS: KETOROLAC 15 MG/ML INJECTION IVP PRN ×3 (08:33→20:27)
[2017-11-19] MEDS: PANTOPRAZOLE 40 MG INJECTION IVP SCH (08:33)
[2017-11-19] MEDS: ENOXAPARIN 40 MG/0.4 ML INJECTION SQ SCH (08:34)
--- NOTE | 2017-11-19 08:42 | General Surgery Progress Note ---
Subjective Narrative: Patient states she had a relatively good night. There was a lot of trouble with nausea initially but once this was resolved she was able to rest. 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 She is having some back pain which she does not normally have, although she was in lithotomy position for several hours during surgery which could explain this back pain. She states that at her last hospitalization pain control was best achieved with Toradol. She denies nausea this morning. Abdominal pain is "not noticeable" except with activity. She's thinks she has felt some "gas rumblings" but no actual passing of flatus yet. Reviewing the EMR it appears she did have hypertension during the light systolic in the 170s and creeping into the low 200s for a relatively short period of time and this seemed to resolve once her pain was under control. While in the room this morning monitor showed blood pressure 133/76 and pulse of 88. Urine output has been good so far running in the 100s with a low of 30 in the last hour. - Vital Signs Last Vital Signs Temp 99.1 F 11/19/17 08:15 Pulse 87 11/19/17 08:30 Resp 20 11/19/17 08:30 BP 146/65 H 11/19/17 08:00 Pulse Ox 94 11/19/17 08:30 - Laboratory Result Diagrams: 11/19/17 04:14 11/19/17 04:14 - Abnormal Exam Respiratory: other (faint crackles bilateral bases) Abdominal: hypoactive bowel sounds - Normal Exam General: awake, alert Cardiovascular: regular rhythm, regular rate Respiratory: no labored breathing Abdominal: soft, appropriately tender, incision(s) (dressings intact and not removed this morning.) Female: other (Lu with clear yellow urine adequate output thus far.) Assessment and Plan (1) Status post partial colectomy Current Visit: Yes Status: Acute (2) Postoperative hypertension Current Visit: Yes Status: Resolved (3) Depression Current Visit: Yes Status: Chronic Qualifiers: Depression Type: unspecified Qualified Code(s): F32.9 - Major depressive disorder, single episode, unspecified (4) Postoperative abdominal pain Current Visit: Yes Status: Acute Plan: 11/19/2017 POD #1 Status post attempted robotic with conversion to open partial colectomy and takedown and colostomy with takedown splenic flexure. Hypertension during the night seemed to resolve once the pain was under better control. Urine output adequate at this time. We'll continue IV fluids as ordered. Continue with sips and chips. Labs reviewed and we'll continue with daily lab monitoring. Doing well barely 12 hours postop. Hospital Course Summary Disclaimer: The visit summary below is not to be considered part of the above Progress Note. Hospital Course: 11/19/2017 POD #1 Status post attempted robotic with conversion to open partial colectomy and takedown and colostomy with takedown splenic flexure. Hypertension during the night seemed to resolve once the pain was under better control. Urine output adequate at this time. We'll continue IV fluids as ordered. Continue with sips and chips. Labs reviewed and we'll continue with daily lab monitoring. Doing well barely 12 hours postop.
--- NOTE | 2017-11-19 09:44 | Operative Note ---
DATE OF SERVICE 11/18/2017 SURGEON Jayson Rivera MD ASSISTANTS Dr. Rasta Woodward APRN PREOPERATIVE DIAGNOSIS Personal history for stercoral perforation, status post sigmoid resection with creation of end colostomy and Maria Elena's pouch. POSTOPERATIVE DIAGNOSIS Personal history for stercoral perforation, status post sigmoid resection with creation of end colostomy and Maria Elena's pouch. PROCEDURE Attempted robotic-assisted laparoscopic takedown of end colostomy with conversion to open procedure and coloproctostomy. ANESTHESIA General endotracheal. EBL AND FLUIDS Please see chart. BRIEF HISTORY/INDICATIONS Mrs. Bishop is a 67-year-old female who a little over 6 months ago had presented to our facility as a result of a perforated sigmoid colon from a stercoral perforation. She was found have a pneumoperitoneum upon radiographic evaluation. The patient was subsequently taken to the operative suite where she did undergo a sigmoid resection and creation of end colostomy and a Maria Elena 's pouch. The patient presents today to undergo takedown of her end colostomy. For completeness please refer to notes within the patient's chart. FINDINGS Upon laparoscopy the patient was found to have a moderate amount of adhesions. The liver which was visualized was within normal limits. The patient had an antecolic gastric bypass. There was a portion of her small bowel that coursed anterior to her transverse colon and was anastomosed to her stomach from her prior gastric bypass. Remaining small bowel which was visualized was within normal limits. Colon was without palpable abnormalities. As a result of the adhesions, conversion to an open procedure was undertaken. A coloproctostomy was subsequently completed. DESCRIPTION OF PROCEDURE After informed consent was obtained, the patient was brought to the operative suite and placed on the table in a supine fashion. After establishment of a general anesthetic her colostomy appliance was removed. A pursestring suture was then placed at the colostomy site resulting in closure of the colostomy. Abdomen was then prepped and draped in sterile fashion. Formal time-out was then completed. 0.25% Marcaine with epinephrine was injected just beneath the left subcostal margin. A 4-5 mm incision was then made through the area of analgesia. A Veress needle was then introduced through this small incision into the peritoneal cavity. Pneumoperitoneum was established to a patient pressure of 15 mmHg utilizing carbon dioxide. Next, a 12-mm camera port was then placed about 5 cm cephalad and about 4 cm to the right of midline above the umbilicus. Camera was then inserted. One could then see the Veress needle coursing through the anterior abdominal wall within the left upper quadrant. Veress needle was then removed. Next, three additional 8-mm da Olivia ports were then placed as well as an 8-mm AirSeal assist port. The 8-mm ports were placed within the left lateral abdominal wall along the midaxillary line, within the epigastric region to the left of midline, within the right lower quadrant about three fingerbreadths medial to the right anterior iliac spine. The 8 mm AirSeal assist port was then placed within the right lateral abdominal wall. Each port site was preinjected with 0.25% Marcaine with epinephrine and placed under direct visualization. Abdominal cavity was explored via the laparoscope. One could see the colostomy as it coursed up through the anterior abdominal wall. There were some adhesions between the omentum and the anterior abdominal wall. Surprisingly, however, there were not significant adhesions present between her prior midline incision and the underlying viscus. Next, I elected to take down her end colostomy. Robot was not docked at this time and attention was focused to her end colostomy. An elliptical incision was made encompassing her colostomy. Dissection was carried down the deep subcuticular tissues to the underlying fascia. The fascia was then excised circumferentially around her end colostomy. End colostomy was brought forth up into the anterior abdominal wall. A point about 3-4 cm proximal to the end colostomy was then ascertained upon the colon. Mesentery was then divided adjacent to this portion of the colon. [facility] clamp was then placed across the colon at this location. Colon was then transected proximal to the [facility] clamp. The distal portion of her end colostomy was then passed off the table as a surgical specimen. Three Allis clamps were then placed upon the end of the transected end of the colon. A 28-mm EEA sizer was placed within the transected end of the colon without difficulty. A 29-mm EEA stapler was then brought forth to the operative field. Anvil portion of the stapler was then placed through the transected end of the colon. The colon was then imbricated to the anvil by placing a pursestring suture of 2-0 Prolene. The colon with the anvil portion in place was then returned back through the peritoneal cavity. Next, the peritoneum at the colostomy site was then closed in a running fashion with O PDS suture. Fascia was then closed with #1 PDS suture. Pneumoperitoneum was then established and the robot was then docked overlying the patient's left hip at a 45-degree angle. Laparoscopic scissors were placed in robotic arm 1. A fenestrated bipolar grasper was placed in robotic arm 2. A Graptor was then placed in robotic arm 3. I then proceeded to the console. The few adhesions between the omentum and anterior abdominal wall were then taken down under direct visualization sharply. The descending colon was then adherent long the left lateral abdominal wall. These adhesions were taken down. The left colon was reflected medially. Surprisingly, although the splenic flexure had been taken down at the original operation, the splenic flexure was once again adhered within the left upper quadrant and the colon could not be brought forth without undue tension into the pelvis. Surprisingly , there was not much in the way of adhesions between the rectal stump and the small bowel. There was some small bowel adhered along the left lateral pelvic wall. These adhesions were taken down sharply under direct visualization. Next , I elected to go ahead and further mobilize the splenic flexure so that the anvil portion could be brought forth into the pelvis without undue tension. Anatomy was somewhat difficult as a result of her prior surgeries and the adhesions were fairly dense at this location. Greater omentum was then taken off of the transverse colon at this location. Gastrocolic ligament was then divided with a vessel sealer under direct visualization back towards the splenic flexure. Splenic flexure was then mobilized medially. Now the anvil portion of stapler could be brought forth into the pelvis without undue tension. Prior areas of dissection were inspected and one could see that a rent was created near the splenic flexure within the mesentery during the process of mobilization of the splenic flexure. This portion of the bowel, however, did not appear visibly to be compromised. Nonetheless, I elected to go ahead and inject intravenous ICG to check fluorescence and viability of the colon. Colon did fluoresce quite well all the way down to the anvil portion of the stapler. Small bowel fluoresced quite well. Transverse colon fluoresced quite well. There was, however, a segment of the splenic flexure where a small rent in the mesentery had been created that did not fluoresce well. This area was carefully inspected and there was perhaps about 4-5 cm of the splenic flexure region--of the descending colon region just beyond the splenic flexure that did not fluoresce well. I contemplated at this point in time about proceeding with the anastomosis versus conversion to an open procedure. I elected to go ahead and convert to an open procedure given the absence of fluorescence of the colon just distal to the splenic flexure. The robot was then undocked. A midline incision was then made within the suprapubic region up to and into the epigastric region. Underlying subcutaneous tissues, fascia was then opened to the extent of the incision. Codman retractor was then placed for adequate visualization. One could then see that the portion of the colon where the mesenteric rent had occurred could easily be brought forth into the pelvis without undue tension. I elected at this time, therefore, to go ahead and resect this portion of the colon given its questionable viability. To once again assess where the colon demarcated, I had Anesthesia once again give 3 ml of ICG intravenously. The da Olivia camera was kept sterile and once again the colon was carefully inspected. One could then see quite well the dark demarcation between where the colon fluoresced quite well and then became apparently nonviable with the colon not fluorescing at the site of the mesenteric rent. A 3-0 Vicryl suture was then placed at the site of this demarcation for orientation purposes. The OR lights were then again turned on and the da Olivia camera was passed off the table. The mesentery distal to the mesenteric rent involving the remaining descending colon was then divided between right angle clamps and ligated with 3-0 Vicryl ties. At this time I also further mobilized the left colon and the left ureter was identified within the retroperitoneal space and had been preserved in its entirety. An [facility] clamp was then placed just proximal to the previously placed suture at the site of viability of the colon. The colon was then transected proximal to the [facility] clamp. Once again three Allis clamps were then placed upon the transected end of the colon. A new 28 mm stapler was then obtained and the anvil portion was then again placed within the newly transected end of the colon. Pursestring suture of 2-0 Prolene again was placed at the transected end of the colon and tied securely resulting in nice imbrication of the colonic mucosa to the anvil portion of the stapler. The anvil portion of stapler then could be brought forth into the pelvis without undue tension. Next, I had my executive sales assistant then try to advance the stapler through the anal verge and up into the rectal stump. This typically is an easy portion of the procedure but for some unknown reason the stapler could not be advanced up to the staple line upon the end of the rectal stump. Several minutes were spent trying to advance the stapler up to the prior staple line. This was to no avail. At one point I thought about advancing the stapler through the anterior portion of the rectum. The rectum at this location, however, appeared quite thin and I did not feel comfortable proceeding with the anastomosis in this fashion. Given the difficulty of the coloproctostomy, I did ask for an "intraoperative consult" and Dr. Jose was kind enough to come to the operative suite to provide additional assistance. He also concurred that it would be best to go ahead and transect a portion of the rectum and perform an anastomosis more proximally. The presacral space was then entered with cautery and the two previously placed Prolene sutures upon the rectal stump were grasped and retracted anteriorly. The mesorectum to the distal rectum was then divided sequentially between right angle clamps and ligated with a combination of 0 Vicryl and 3-0 Vicryl ties. Dissection was then carried down to the proximal rectum. Next, a contour stapler was then brought forth into the operative field and placed upon the rectum and advanced down towards the pouch of Pablo. Perhaps about 6 cm of the proximal rectum was transected. Then the stapler could be easily advanced into the anal verge and could be easily advanced up to the staple line without difficulty. Trocar portion of the stapler was then allowed to exit just anterior to the staple line upon the rectum. Trocar portion of the stapler was then attached to the anvil portion of the stapler and then tightened to the appropriate tension. Care was taken to make sure that the colon had not been "twisted" as it was brought forth into the pelvis. Stapler was then tightened to the appropriate tension and fired. Stapler was then released and withdrawn out through the anal verge. Two complete doughnuts were present within the EEA stapler. Saline was then placed within the pelvis. The colon was then grasped distal to the anastomosis and occluded. Rigid proctoscope was then placed up into the anal verge and the rectum and remaining descending colon proximal to the anastomosis was then insufflated until air began to pass out through the anal verge. With the anastomosis fairly taut with air underneath water, at no point in time could one see any extravasation of air bubbles, i.e., the anastomosis was airtight. The saline was then suctioned until clear. Prior areas of dissection were inspected and found to be hemostatic in nature. There was no tension upon the anastomosis. No evidence for vascular compromise was present at the site of the anastomosis. Once the instrument, sponge and needle counts were performed and fount to be correct, attention was then directed towards closure. New gowns and gloves and a closure set were then obtained. The fascial opening at the camera port site was closed in a [id number] fashion with 0 Vicryl. Prior midline incision was then closed in a running fashion with #1 PDS suture. Skin and subcutaneous tissues were then irrigated with Betadine solution. Skin edges were then imbricated with ismael. The patient has awakened from her anesthetic and is in recovery room in stable condition. Additionally, it should be noted that Neri Woodward APRN, was present throughout the entire case and played a pivotal role in providing assistance and exposure during the course of the procedure. GARCIA
[2017-11-19] MEDS: SALINE FLUSH 10ml SYRINGE IV PRN (09:45)
[2017-11-19] MEDS: BuPROPion SR 150mg (12HR) TABLET PO SCH (09:47)
[2017-11-19] MEDS: ESCITALOPRAM 20 MG TABLET PO SCH (09:47)
[2017-11-19] MEDS: ONDANSETRON 4 MG/2 ML INJECTION IVP PRN ×2 (14:26→20:27)
[2017-11-19 14:32] VITALS: BMI 22.7
[2017-11-19] MEDS: [UNRECOGNIZED DRUG - OTHER] PO PRN (18:08)
--- NOTE | 2017-11-19 19:15 | Progress Note ---
DATE OF SERVICE 11/19/2017 FINDINGS Pastora was seen this evening on rounds. She was complaining of a component of incisional discomfort but stated that overall she is doing fairly well. She states that her incisional pain has improved throughout today. The patient states that she did notice a little minimal bloody drainage from her rectal/ anal region earlier today while ambulating. PHYSICAL EXAM VITAL SIGNS: Afebrile, normotensive. Please refer to EMR. CHEST: Clear to auscultation bilaterally. HEART: Regular rate and rhythm. Normal S1 and S2 without gallops, murmurs or clicks. ABDOMEN: Abdomen is soft along the lateral aspect. The patient does have incisional tenderness along the midline as one would expect postoperatively. No evidence for rebound or involuntary guarding. LABORATORY/RADIOGRAPHIC EVALUATION The patient's CBC today was unremarkable. White count is slightly elevated, most likely as a result of stress from surgery at 13.6. Hemoglobin is stable at 11.8. BMP obtained and found to be without marked abnormalities. ASSESSMENT 67-year-old female status post takedown of end colostomy with coloproctostomy. Overall patient doing well. PLAN I informed the patient that I am not surprised that she may have a little bit of bloody drainage from her anus/rectum. It was difficult to advance the stapler through the anal verge and into the end of the rectal stump and several manipulations were performed most likely resulting in some irritation to the rectum. Overall, I am pleased with the patient's appearance on postop day #1. Will continue with current care at this time. GARCIA
[2017-11-20] MEDS: D5-1/2NS with KCL 20mEq 1,000 ML IV SCH ×3 (02:16→12:09)
[2017-11-20] MEDS: KETOROLAC 15 MG/ML INJECTION IVP PRN ×3 (02:38→18:06)
[2017-11-20] MEDS: ONDANSETRON 4 MG/2 ML INJECTION IVP PRN (02:38)
--- NOTE | 2017-11-20 07:57 | General Surgery Progress Note ---
Subjective Patient reports: feels better, flatus Narrative: She is in recliner. She uses Morphine AUDIO SPECIALIST rarely, Toradol is helping with pain more. Abd pain is less today. Mild nausea during the night, none this am. Passing flatus. She had bloody discharge per rectum while walking yesterday, I am not surprised given the difficulty getting the EEA stapler to advance during surgery. - Vital Signs Last Vital Signs Temp 99.7 F 11/20/17 00:00 Pulse 85 11/20/17 04:00 Resp 19 11/20/17 05:00 BP 142/65 H 11/19/17 23:02 Pulse Ox 92 11/20/17 00:00 - Laboratory Result Diagrams: 11/20/17 04:13 11/20/17 04:13 - Abnormal Exam Respiratory: other (Crackles bilateral bases) Abdominal: hypoactive bowel sounds (present) - Normal Exam General: awake, alert, oriented Abdominal: soft, appropriately tender, incision(s) (dressing not removed today) Female: other (clear yellow urine in roy, most hours >100 ml.) Psychiatric: normal affect Neurological: CN 2-12 grossly intact Assessment and Plan (1) Status post partial colectomy Current Visit: Yes Status: Acute (2) Postoperative hypertension Current Visit: Yes Status: Chronic (3) Depression Current Visit: Yes Status: Chronic Qualifiers: Depression Type: unspecified Qualified Code(s): F32.9 - Major depressive disorder, single episode, unspecified (4) Postoperative abdominal pain Current Visit: Yes Status: Acute Plan: A little hypertension again now 147/64 now, no enough to treat, likely combination pain and post op. Crackles at lung bases, urine output usually > 100, will decrease IVF to 75/hr. DC Roy Advance to clear liquids now, and fulls for noon. WBC decreased to 10.7 and HGB stable at 11.1 today. Lytes are OK. Re-eval on evening rounds. Daily labs Hospital Course Summary Disclaimer: The visit summary below is not to be considered part of the above Progress Note. Hospital Course: 11/19/2017 POD #1 Status post attempted robotic with conversion to open partial colectomy and takedown and colostomy with takedown splenic flexure. Hypertension during the night seemed to resolve once the pain was under better control. Urine output adequate at this time. We'll continue IV fluids as ordered. Continue with sips and chips. Labs reviewed and we'll continue with daily lab monitoring. Doing well barely 12 hours postop. 11/20/2017 POD #2 A little hypertension again now 147/64 now, no enough to treat, likely combination pain and post op. Crackles at lung bases, urine output usually > 100, will decrease IVF to 75/hr. DC Roy Advance to clear liquids now, and fulls for noon. WBC decreased to 10.7 and HGB stable at 11.1 today. Lytes are OK.
[2017-11-20] MEDS: ENOXAPARIN 40 MG/0.4 ML INJECTION SQ SCH (08:49)
[2017-11-20] MEDS: ESCITALOPRAM 20 MG TABLET PO SCH (08:50)
[2017-11-20] MEDS: BuPROPion SR 150mg (12HR) TABLET PO SCH (08:50)
[2017-11-20] MEDS: PANTOPRAZOLE 40 MG INJECTION IVP SCH (08:51)
[2017-11-20] MEDS: MORPHINE PCA 30 MG/30 ML SYRINGE IV PRN (10:34)
[2017-11-20] MEDS: [UNRECOGNIZED DRUG - OTHER] PO PRN (15:17)
--- NOTE | 2017-11-20 15:24 | Progress Note ---
DATE 11/20/2017 FINDINGS Pastora was seen earlier this morning on rounds. She states that she is slowly improving. She is having less incisional discomfort. VITALS: Afebrile. Normotensive. Please refer to EMR. CHEST: Clear to auscultation bilaterally. HEART: Regular rate and rhythm. Normal S1 and S2 without gallops, murmurs or clicks. ABDOMEN: Palpation of the abdomen reveals less incisional tenderness. There is no evidence for guarding or rebound. The dressing remained in place and was clean, dry and intact. LABORATORY/RADIOGRAPH EVALUATION The patient had a CBC today and her white count is on a downward trend at 10.7. Hemoglobin is overall stable at 11.1. BMP obtained and found to be without marked abnormalities. ASSESSMENT 67-year-old female status post takedown of end colostomy with coloproctostomy. Patient doing well. PLAN Discontinue Lu. Begin to advance diet. Will likely transfer out to surgical floor later today. I am pleased with the patient's progress. [facility]
[2017-11-20] MEDS ORDERED: PNEUMOCOCCAL 23 VACCINE 0.5ml INJECTION IM ONE (16:19)
[2017-11-21] MEDS: D5-1/2NS with KCL 20mEq 1,000 ML IV SCH ×3 (01:22→23:00)
[2017-11-21] MEDS: KETOROLAC 15 MG/ML INJECTION IVP PRN ×3 (01:40→21:00)
[2017-11-21] MEDS: ENOXAPARIN 40 MG/0.4 ML INJECTION SQ SCH (08:06)
[2017-11-21] MEDS: ESCITALOPRAM 20 MG TABLET PO SCH (08:07)
[2017-11-21] MEDS: PANTOPRAZOLE 40 MG INJECTION IVP SCH (08:07)
[2017-11-21] MEDS: BuPROPion SR 150mg (12HR) TABLET PO SCH (08:08)
--- NOTE | 2017-11-21 08:48 | General Surgery Progress Note ---
Subjective Patient reports: pain is less (not using STILL OPERATOR GIN much, states Toradol is most helpful), tolerating liquids well (doing well with Fulls, will change to Regular diet), voiding w/o difficulty, bowel movement (she rports as semi-formed , mixed old blood and brown stool.) Narrative: States she is having some "cankers" in her mouth. At home she would just take a few days of Acylovir PO. - Vital Signs Last Vital Signs Temp 98.2 F 11/21/17 04:00 Pulse 78 11/21/17 04:00 Resp 18 11/21/17 05:59 BP 167/70 H 11/21/17 04:00 Pulse Ox 88 L 11/21/17 04:00 - Laboratory Result Diagrams: 11/21/17 04:33 11/21/17 04:33 - Pathology Pending - Abnormal Exam Respiratory: other (Crackles right base, left base barely faint crackles) - Normal Exam General: awake, alert, oriented, no acute distress Cardiovascular: regular rhythm, regular rate Respiratory: no labored breathing (room air) Abdominal: BS normo active x4, soft, appropriately tender (midline and trocar sites), incision(s) (dressing not removed now (she is eating brakfast in recliner) ) Psychiatric: normal affect Neurological: CN 2-12 grossly intact Assessment and Plan (1) Status post partial colectomy Current Visit: Yes Status: Acute (2) Postoperative hypertension Current Visit: Yes Status: Chronic (3) Depression Current Visit: Yes Status: Chronic Qualifiers: Depression Type: unspecified Qualified Code(s): F32.9 - Major depressive disorder, single episode, unspecified (4) Postoperative abdominal pain Current Visit: Yes Status: Acute Plan: 11/21/2017 POD #3 Small BM yesterday combined old blood and brown stool. Denies nausea, advance diet to regular. labs stable Transfer to surgical floor. Will look at the incision later today. PT/OT ordered in prep for discharge needs. Acyclovir for her mouth cankers. dose checked with pharmacy. Anticipate discharge within 1-2 days if no issue arise Hospital Course Summary Disclaimer: The visit summary below is not to be considered part of the above Progress Note. Hospital Course: 11/19/2017 POD #1 Status post attempted robotic with conversion to open partial colectomy and takedown and colostomy with takedown splenic flexure. Hypertension during the night seemed to resolve once the pain was under better control. Urine output adequate at this time. We'll continue IV fluids as ordered. Continue with sips and chips. Labs reviewed and we'll continue with daily lab monitoring. Doing well barely 12 hours postop. 11/20/2017 POD #2 A little hypertension again now 147/64 now, no enough to treat, likely combination pain and post op. Crackles at lung bases, urine output usually > 100, will decrease IVF to 75/hr. DC Lu Advance to clear liquids now, and fulls for noon. WBC decreased to 10.7 and HGB stable at 11.1 today. Lytes are OK. 11/21/2017 POD #3 Small BM yesterday combined old blood and brown stool. Denies nausea, advance diet to regular. labs stable Transfer to surgical floor. PT/OT ordered in prep for discharge needs. Anticipate discharge within 1-2 days if no issue arise
[2017-11-21] MEDS: ACYCLOVIR 200 MG CAPSULE PO SCH ×2 (18:09→20:24)
--- NOTE | 2017-11-21 18:09 | Progress Note ---
DATE OF SERVICE 11/21/2017 FINDINGS Pasotra was seen earlier today on rounds. She states she did have a small bowel movement. She denies any element of nausea or vomiting. She states her incisional discomfort continues to improve. PHYSICAL EXAM VITAL SIGNS: Afebrile, normotensive. Please refer to EMR. ABDOMEN: Dressing was removed. Incisions are clean, dry, and intact with no significant erythema. There was some ecchymosis present. LABORATORY/RADIOGRAPHIC EVALUATION The patient had a CBC and BMP today that were unremarkable. Hemoglobin overall is stable. White count stable at 9.4. ASSESSMENT 67-year-old female status post takedown of end colostomy with coloproctostomy. Overall, patient doing well. PLAN Decrease IV fluids. Advance diet to regular diet. Begin [place]/p.o. pain meds. Overall pleased with the patient's progress. MTDD
[2017-11-21] MEDS: HYDROCODONE/APAP 5mg/325mg TABLET PO PRN ×2 (18:44→19:30)
[2017-11-22] MEDS: HYDROCODONE/APAP 5mg/325mg TABLET PO PRN (01:51)
[2017-11-22] MEDS: KETOROLAC 15 MG/ML INJECTION IVP PRN (05:10)
[2017-11-22] MEDS: D5-1/2NS with KCL 20mEq 1,000 ML IV SCH (05:25)
[2017-11-22 08:01] VITALS: RESP 18
--- NOTE | 2017-11-22 08:41 | General Surgery Progress Note ---
Subjective Patient reports: no new complaints, feels better, pain is less, tolerating a regular diet, voiding w/o difficulty, bowel movement (liquidy with some blood), afebrile Narrative: Anticipating DC to home today, feeling that she "would be fine" at home. Daughter is around to help if needed. - Vital Signs Last Vital Signs Temp 98.2 F 11/22/17 08:00 Pulse 72 11/22/17 08:00 Resp 18 11/22/17 08:00 BP 166/87 H 11/22/17 08:00 Pulse Ox 94 11/22/17 08:00 - Laboratory Result Diagrams: 11/22/17 04:22 11/22/17 04:23 - Pathology End colostomy, descending colon and omentum without neoplasm, several benign lymph nodes - Normal Exam General: awake, alert, oriented Cardiovascular: regular rhythm, regular rate Respiratory: no labored breathing, other (crackles right base only) Abdominal: soft, appropriately tender (midline and trocar sites), no guarding, incision(s) (CDI with ismael, some bruising lower abdomen) Psychiatric: normal affect Assessment and Plan (1) Status post partial colectomy Current Visit: Yes Status: Acute (2) Postoperative hypertension Current Visit: Yes Status: Chronic (3) Depression Current Visit: Yes Status: Chronic Qualifiers: Depression Type: unspecified Qualified Code(s): F32.9 - Major depressive disorder, single episode, unspecified (4) Postoperative abdominal pain Current Visit: Yes Status: Resolved Plan: 11/22/2017 POD#4 Eating regular diet, having soft and liquid stools, no nausea, pain controlled with Dutton, Ibuprofen now available instead of Toradol. Labs reviewed and are stable. Pathology: End colostomy, descending colon and omentum without neoplasm, several benign lymph nodes. Still some crackles right base only, otherwise clear, on room air. Likely DC to home after evening rounds if she continues to do well throughout today. Hospital Course Summary Disclaimer: The visit summary below is not to be considered part of the above Progress Note. Hospital Course: 11/19/2017 POD #1 Status post attempted robotic with conversion to open partial colectomy and takedown and colostomy with takedown splenic flexure. Hypertension during the night seemed to resolve once the pain was under better control. Urine output adequate at this time. We'll continue IV fluids as ordered. Continue with sips and chips. Labs reviewed and we'll continue with daily lab monitoring. Doing well barely 12 hours postop. 11/20/2017 POD #2 A little hypertension again now 147/64 now, no enough to treat, likely combination pain and post op. Crackles at lung bases, urine output usually > 100, will decrease IVF to 75/hr. DC Lu Advance to clear liquids now, and fulls for noon. WBC decreased to 10.7 and HGB stable at 11.1 today. Lytes are OK. 11/21/2017 POD #3 Small BM yesterday combined old blood and brown stool. Denies nausea, advance diet to regular. labs stable Transfer to surgical floor. PT/OT ordered in prep for discharge needs. Anticipate discharge within 1-2 days if no issue arise 11/22/2017 POD#4 Eating regular diet, having soft and liquid stools, no nausea, pain controlled with Dutton, Ibuprofen now available instead of Toradol. Labs reviewed and are stable. Pathology: End colostomy, descending colon and omentum without neoplasm, several benign lymph nodes. Still some crackles right base only, otherwise clear, on room air. Likely DC to home after evening rounds if she continues to do well throughout today.
[2017-11-22] MEDS: ESCITALOPRAM 20 MG TABLET PO SCH (08:48)
[2017-11-22] MEDS: ENOXAPARIN 40 MG/0.4 ML INJECTION SQ SCH (08:49)
[2017-11-22] MEDS: BuPROPion SR 150mg (12HR) TABLET PO SCH (08:49)
[2017-11-22] MEDS: IBUPROFEN 600 MG TABLET PO PRN ×2 (08:49→16:02)
[2017-11-22] MEDS: PANTOPRAZOLE 40 MG INJECTION IVP SCH (08:49)
[2017-11-22] MEDS: ACYCLOVIR 200 MG CAPSULE PO SCH ×3 (08:49→15:22)
[2017-11-22 15:31] VITALS: BP 161/89; PULSE 75; TEMP 97.6; O2SAT 96
--- NOTE | 2017-11-23 13:50 | Progress Note ---
DATE OF SERVICE 11/22/2017 FINDINGS Pastora Bishop was seen earlier today on rounds. She states that she has been passing flatus. She has previously had a small bowel movement. She states that she continues to improve and has less abdominal discomfort. Denies nausea. PHYSICAL EXAM VITAL SIGNS: Afebrile, normotensive. Please refer to EMR. ABDOMEN: Soft, nontender. Incisions are without erythema or induration. They are clean, dry and intact. LABORATORY/RADIOGRAPHIC EVALUATION The patient had a CBC today and her white count has returned to normal at 7.5. Hemoglobin is stable at 10.0. BMP without marked abnormalities. ASSESSMENT 67-year-old female status post takedown of end colostomy, patient doing well. PLAN Discharge to home. Please refer to discharge orders if detail needed. [id number]
== END 2017-11-22 16:10 | disposition home or self-care (01) | DRG 331 ==
LOC: NMC.PERIOP 10:52 → CCU 20:50 → SRG 11-21 10:04
PROVIDERS: ADMIT Surgery; ATTEND Surgery